=== PATIENT | female | born 1965 | race Caucasian/White ===

== ENCOUNTER 2020-05-29 16:35 | Outpatient (CLI) | payer OTHER, SELFPAY ==
--- NOTE | ~2020-05-29 | MM_ITS ---
EXAMINATION: MM screening [facility] BI w jason HISTORY: Screening mammogram TECHNIQUE: Craniocaudal and mediolateral oblique 3-D tomosynthesis images were obtained and synthetic 2-D images were generated. CAD analysis was submitted and interpreted. COMPARISON: 10/26/2018, 06/13/2017 bilateral digital screening mammogram examinations BREAST PARENCHYMAL COMPOSITION: There are scattered areas of fibroglandular density. FINDINGS: Small circumscribed benign intramammary lymph nodes are identified, as well as occasional b enign calcifications. There is no evidence of suspicious mass, calcification, or architectural distor tion to suggest malignancy in either breast. There has been no suspicious interval change. IMPRESSION: 1. No mammographic evidence of malignancy. 2. Recommend routine screening mammography in one year. BI-RADS Category 2: Benign finding(s). Reviewed, dictated and finalized at location A.
== END 2020-05-29 16:36 | disposition home or self-care (01) ==
LOC: ANHIMG 16:39
PROVIDERS: PCP Physician Assistant; Visit Provider Physician Assistant
DX: Z12.31 Encounter for screening mammogram for malignant neoplasm of breast (principal)
CPT/HCPCS: 77063; 77067

== ENCOUNTER 2021-12-05 08:45 | Outpatient (CLI) | payer OTHER, SELFPAY ==
--- NOTE | ~2021-12-05 | MM_ITS ---
EXAMINATION: MM screening [facility] BI w jason HISTORY: Screening mammogram TECHNIQUE: Craniocaudal and mediolateral oblique 3-D tomosynthesis images were obtained and synthetic 2-D images were generated. CAD analysis was submitted and interpreted. COMPARISON: 05/29/2020, 10/26/2018, 06/13/2017 BREAST PARENCHYMAL COMPOSITION: There are scattered areas of fibroglandular density. FINDINGS: There is no evidence of suspicious mass, calcification, or architectural distortion to sugg est malignancy in either breast. There has been no suspicious interval change. IMPRESSION: 1. No mammographic evidence of malignancy. 2. Recommend routine screening mammography in one year. BI-RADS Category 1: Negative Reviewed, dictated and finalized at location A. LY CHAIN TECH
== END 2021-12-05 08:46 | disposition home or self-care (01) ==
PROVIDERS: PCP Physician Assistant; Visit Provider Obstetrics & Gynecology
DX: Z12.31 Encounter for screening mammogram for malignant neoplasm of breast (principal)
CPT/HCPCS: 77063; 77067

== ENCOUNTER 2022-03-12 08:38 | Outpatient (CLI) | payer OTHER, SELFPAY ==
--- NOTE | ~2022-03-12 | MR_ITS ---
EXAMINATION: MR lumbar spine wo con DATE: 03/12/2022 09:25 INDICATION: Degeneration of lumbar intervertebral disc. TECHNIQUE: Magnetic resonance imaging (MRI) of the lumbar spine was performed without intravenous con trast. Sequences included sagittal T2-weighted FSE, sagittal T2-weighted FS FSE, sagittal T1-weighted FSE, and axial T2-weighted FSE. COMPARISON: None FINDINGS: There is 8 degrees levocurvature of thoracic lumbar spine. Vertebral body heights are adriana l. There is mildly decreased disc height at L4-L5. The distal spinal cord signal intensity is normal. The conus medullaris is at L2. The following disc levels are specifically discussed: L1-L2: The disc does not extend beyond the endplate margin. There is mild bilateral facet joint osteo arthritis. There is no neural foraminal stenosis. There is no central canal stenosis. L2-L3: The disc does not extend beyond the endplate margin. There is moderate bilateral facet joint o steoarthritis. There is no neural foraminal stenosis. There is no central canal stenosis. L3-L4: There is a left foraminal protrusion. There is moderate bilateral facet joint osteoarthritis. There is mild left neural foraminal stenosis. There is no central canal stenosis. L4-L5: The disc is bulging and has an annular fissure. There is severe bilateral facet joint osteoart hritis. There is mild bilateral neural foraminal stenosis. There is mild central canal stenosis. L5-S1: The disc is bulging and has an annular fissure. There is severe bilateral facet joint osteoart hritis. There is mild bilateral neural foraminal stenosis. There is mild central canal stenosis. IMPRESSION: 1. Mild lumbar spondylosis. Reviewed, dictated and finalized at location A. IMPRESSION: 1. Mild lumbar spondylosis.
== END 2022-03-12 08:39 | disposition home or self-care (01) ==
PROVIDERS: PCP Physician Assistant; Visit Provider Physician Assistant
DX: M51.36 Other intervertebral disc degeneration, lumbar region (principal); M47.896 Other spondylosis, lumbar region
CPT/HCPCS: 72148

== ENCOUNTER 2022-05-26 09:08 | Outpatient (CLI) | payer OTHER, SELFPAY ==
--- NOTE | 2022-05-26 11:30 | NEURO_ITS ---
Impression: # Complains of severe leg pain. # Normal nerve conduction study. # Normal needle/EMG exam. Nerve Conduction Studies Anti Sensory Summary Table Stim Site NR Peak (ms) P-T Amp (?V) Site1 Site2 Delta-P (ms) Dist (cm) Nitesh (m/s) Left Sup Fibular Anti Sensory (Ant Lat Mall) 14 cm 3.1 18.4 14 cm Ant Lat Mall 3.1 16.0 52 Right Sup Fibular Anti Sensory (Ant Lat Mall) 14 cm 3.2 24.9 14 cm Ant Lat Mall 3.2 16.0 50 Left Sural Anti Sensory (Lat Mall) Calf 3.9 13.5 Calf Lat Mall 3.9 16.0 41 Right Sural Anti Sensory (Lat Mall) Calf 4.0 16.5 Calf Lat Mall 4.0 16.0 40 Motor Summary Table Stim Site NR Onset (ms) O-P Amp (mV) Site1 Site2 Delta-0 (ms) Dist (cm) Nitesh (m/s) Left Peroneal Motor (Vastus Med) Ankle 4.1 2.9 Popit Ankle 7.2 38.0 53 Popit 11.3 2.2 Right Peroneal Motor (Vastus Med) Ankle 3.8 3.6 Popit Ankle 7.6 36.0 47 Popit 11.4 2.9 Left Tibial Motor (Abd Roland Brev) Ankle 4.3 6.4 Knee Ankle 8.3 38.0 46 Knee 12.6 4.9 Right Tibial Motor (Abd Roland Brev) Ankle 4.1 7.2 Knee Ankle 8.5 39.0 46 Knee 12.6 8.6 F Wave Studies NR F-Lat (ms) L-R F-Lat (ms) Left Peroneal (Mrkrs) (EDB) 46.25 1.10 Right Peroneal (Mrkrs) (EDB) 45.16 1.10 Left Tibial (Mrkrs) (Abd Hallucis) 44.82 0.28 Right Tibial (Mrkrs) (Abd Hallucis) 44.54 0.28 EMG Side Muscle Nerve Root Ins Act Fibs Amp Dur Recrt Comment Right AntTibialis Dp Br Fibular L4-5 Nml Nml Nml Nml Nml Right Gastroc Tibial S1-2 Nml Nml Nml Nml Nml Right Fibularis Long Sup Br Fibular L5-S1 Nml Nml Nml Nml Nml Right Flex Dig Long Tibial L5-S2 Nml Nml Nml Nml Nml Right Ext Dig Brev Dp Br Fibular L5, S1 Nml Nml Nml Nml Nml Left AntTibialis Dp Br Fibular L4-5 Nml Nml Nml Nml Nml Left Gastroc Tibial S1-2 Nml Nml Nml Nml Nml Left Fibularis Long Sup Br Fibular L5-S1 Nml Nml Nml Nml Nml Left Flex Dig Long Tibial L5-S2 Nml Nml Nml Nml Nml Left Ext Dig Brev Dp Br Fibular L5, S1 Nml Nml Nml Nml Nml Right QuadratusFem QuadFemoris L4-5, S1 Nml Nml Nml Nml Nml Left QuadratusFem QuadFemoris L4-5, S1 Nml Nml Nml Nml Nml Right ExtHallLong Dp Br Fibular L5, S1 Nml Nml Nml Nml Nml Right Ext Dig Long Dp Br Fibular L5-S1 Nml Nml Nml Nml Nml Left ExtHallLong Dp Br Fibular L5, S1 Nml Nml Nml Nml Nml Left Ext Dig Long Dp Br Fibular L5-S1 Nml Nml Nml Nml Nml MTDD
== END 2022-05-26 09:09 | disposition home or self-care (01) ==
PROVIDERS: PCP Physician Assistant; Visit Provider Nurse Practitioner Family
DX: R20.2 Paresthesia of skin (principal); M79.662 Pain in left lower leg; M79.661 Pain in right lower leg
CPT/HCPCS: 95886; 95910

== ENCOUNTER → 2025-10-07 16:36 | Outpatient (REF) | payer OTHER, SELFPAY ==
--- NOTE | 2025-10-07 16:36 | S_PTH ---
PATIENT: Hayley Ferreira LOC: [facility] U#:[id number] AGE/SX: 60/F ROOM: RE10/07/[address]: Sarah Martin MD : 1965 BED: DIS: SPEC #: [id number] RECD: 10/08/25 07:33 STATUS: COLTON ZENDEJAS #: [id number] ANDRES: 10/07/25 16:[address]: Sarah Martin DEPT: [facility] Surgical RECD BY: Latoya Funes ENTERED: 10/08/25 07:33 SP TYPE: Surgical OTHR DR: Alfreda Fox, PADanielC Tissues: A - LESION Procedures: Gross and Microscopic Level 4
--- OUTSIDE RECORDS SUMMARY | 2025-10-07 18:29 | XMS_ITS | Clinical Summary ---
Author Organization [facility] Address [address] [place] [address] Care Team Providers Care Historical Records Administrator Name Role Phone Almas Olson MD Primary Care Provider [phone] Source Comments [facility],non-owned Affiliates and Associated Physician Practices is amultiple site organization consisting of ambulatory clinics and hospital sitesin [place], [place], [place] and [place]. This disclosure is being madepursuant to the Care Everywhere program and may not contain all information available regarding this patient. Last updated 18.[facility] Allergies Active Allergy Reactions Criticality Noted Date Comments Penicillins Swelling 04/30/2015 Medications * Be aware that medications may not be up to date on this document. Alwaysverify current medications with the patient. dexlansoprazole (DEXILANT) 60 MG capsule Take 60 mg by mouth once daily Active pentosan polysulfate sodium (ELMIRON) 100 MG capsule Take 100 mg by mouth 3 times daily before meals Active lisinopril (PRINIVIL; ZESTRIL) 10 MG tablet Take 10 mg by mouth once daily Active atorvastatin (LIPITOR) 20 MG tablet Take 20 mg by mouth at bedtime Active busPIRone (BUSPAR) 15 MG tablet Take 15 mg by mouth 2 times daily Active lubiprostone (AMITIZA) 24 MCG capsule Take 24 mcg by mouth 2 times daily with morning and evening meal Active hydrOXYzine pamoate (VISTARIL) 25 MG capsule Take 25 mg by mouth at bedtime Active cyclobenzaprine (FLEXERIL) 10 MG tablet Take 10 mg by mouth at bedtime Active amitriptyline (ELAVIL) 25 MG tablet Take 37.5 mg by mouth at bedtime Active LORazepam (ATIVAN) 1 MG tablet Take 1 mg by mouth every 8 hours as needed for Anxiety Active norethindrone (AYGESTIN) 5 MG tablet Take 5 mg by mouth once daily Active SUMAtriptan (IMITREX) 100 MG tablet Take 100 mg by mouth once as needed for Migraine Active Isometheptene-Ca ffeine-APAP 130-20-500 MG TABS Take by mouth every 12 hours as needed Active Family History Medical History Relation Name Comments CAD (Coronary Artery Disease) Father Relation Name Status Comments Father Social History Tobacco Use Types Packs/Day Years Used Date Smoking Tobacco: Never Smokeless Tobacco: Never Alcohol Use Standard Drinks/Week Comments No 0 (1 standard drink = 0.6 oz pur e alcohol) Comments Unknown Sex and Gender Information Value Date Recorded Sex Assigned at Not on file 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 Gender Identity Not on file Sexual Orientation Not on file Last Filed Vital Signs Vital Sign Reading Time Taken Comments Blood Pressure - - Pulse - - Temperature - - Respiratory Rate - - Oxygen Saturation - - Inhaled Oxygen Concentration - - Weight 86.2 kg (190 lb) 04/30/2015 6:07 AM CDT Height 162.6 cm (5' 4) 04/30/2015 6:07 AM CDT Body Mass Index 32.61 04/30/2015 6:07 AM CDT Plan of Treatment Health Maintenance Due Date Last Done Comments COLOGUARD (AGES 45-75) - COL ON CA SCREENING 1965 COLON MONITORING 1965 COLONOSCOPY - COLON CA SCREENING 1965 CT COLONOGRAPHY - COLON CA SCREENING 1965 Colorectal Cancer Screening 1965 FIT - COLON CA SCREENING 1965 FLEX SIG - COLON CA SCREENING 1965 MAMMOGRAM 1965 HIV SCREENING 1979 HEPATITIS C SCREENING 04/02/1982 DTAP/TDAP/TD VACCINES (1 - Tdap) 1983 PAP SMEAR 1985 Cervical Cancer Screening 1994 PAP with HPV 1994 PNEUMOCOCCAL VACCINE 50+ (1 of 1 - PCV) 2014 ZOSTER VACCINE (1 of 2) 2014 DEPRESSION SCREENING 11/14/2024 COVID-19 VACCINE (1 - 2024-2 6 season) 2025 INFLUENZA VACCINE (#1) 2025 Respiratory Syncytial Virus (RSV) Vaccine Pt: or over 60 yrs (1 - 1-dose 75+ series) 2039 HEPATITIS B VACCINE Aged Out No longe r eligible based on patient's age to complete this topic HIB VACCINE Aged Out No longer eligi ble based on patient's age to complete this topic HPV VACCINE Aged Out No longer eligi ble based on patient's age to complete this topic MENINGOCOCCAL (Group B) VACC INE SHARED DECISION-MAKING Aged Out No longer eligibl e based on patient's age to complete this topic MENINGOCOCCAL GROUPS A/C/Y/W VACCINE Aged Out No longer eligible b ased on patient's age to complete this topic Insurance [employer] Care Teams Historical Records Administrator Relationship Specialty Start Date End Date Almas Olson MD [address] [place] [id number] PCP - General 06/06/18
== END ==
LOC: ANHLAB 16:36
PROVIDERS: PCP Physician Assistant; Visit Provider Plastic Surgery
DX: C44.91 Basal cell carcinoma of skin, unspecified (principal)
CPT/HCPCS: 88305

== ENCOUNTER → 2025-10-22 15:30 | Outpatient (REF) | payer OTHER, SELFPAY ==
--- NOTE | 2025-10-22 15:30 | S_PTH ---
PATIENT: Hayley Ferreira LOC: [facility] #:[id number] AGE/SX: 60/F ROOM: RE10/22/[address]: Sarah Martin MD : 1965 BED: DIS: SPEC #: [id number] RECD: 10/23/25 08:49 STATUS: COLTON ZENDEJAS #: [id number] ANDRES: 10/22/25 15:[address]: Sarah Martin DEPT: [facility] Surgical RECD BY: Marietta Enriquez MLT, ([facility]) ENTERED: 10/23/25 08:50 SP TYPE: Surgical OTHR DR: Alfreda Fox, PADanielC Tissues: A - Biopsy B - Biopsy Procedures: Hematoxylin and Eosin Stain Gross and Microscopic Level 4
--- OUTSIDE RECORDS SUMMARY | 2025-10-22 17:56 | XMS_ITS | Clinical Summary ---
Author Organization [facility] Address [address] [place] [place] [address] Care Team Providers Care Box Car Checker Name Role Phone Almas Olson MD Primary Care Provider [phone] Source Comments [facility],non-owned Affiliates and Associated Physician Practices is amultiple site organization consisting of ambulatory clinics and hospital sitesin [place], [place], [place] and [place]. This disclosure is being madepursuant to the Care Everywhere program and may not contain all information available regarding this patient. 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 Gender Identity Not on file Sexual Orientation [...] patient's age to complete this topic Insurance [employer] [facility] SELF PAY NO INSURANCE Member Subscriber Plan / Payer (Ef fective for All Dates) Name:Ike Raphael Member ID:Not on file Relation to Subscriber:Not on file Name:IKE RAPHAEL Subscriber ID:Not on file (Home) Address: [address] [place] [id number] Payer ID:Not on file Group ID:Not on file Type:Self Pay Address: [place], [place] [employer] Care Teams Box Car Checker Relationship Specialty Start Date End Date Almas Olson MD [address] [place] [address] PCP - General 06/06/18
--- OUTSIDE RECORDS SUMMARY | 2025-10-22 17:57 | XMS_ITS | Data Portability ---
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 Supervisor Hydrochloric Area variances may occur. Despite proofreading, typographical errors may occur. Occasional wrong-word or 'hpokn-r-wrka' substitutions may have occurred due to the inherent limitations of voice recording. Read the chart carefully and recognize, using context, where substitutions have occurred. Not available 04/02/2024 17:46:20 04/17/2024 04/17/2024 This note is dictated and transcribed by [employer]. Supervisor Hydrochloric Area variances may occur. Despite proofreading, typographical errors may occur. Occasional wrong-word or 'yyevv-z-txyp' substitutions may have occurred due to the inherent limitations of voice recording. Read the chart carefully and recognize, using context, where substitutions have occurred. Not available 04/17/2024 16:22:08 06/05/2024 06/05/2024 This note is dictated and transcribed by [employer]. Supervisor Hydrochloric Area variances may occur. Despite proofreading, typographical errors may occur. Occasional wrong-word or 'nkmzh-e-cqvq' substitutions may have occurred due to the inherent limitations of voice recording. Read the chart carefully and recognize, using context, where substitutions have occurred. Not available 06/07/2024 09:15:56 11/29/2024 11/29/2024 This note is dictated and transcribed by [employer]. Supervisor Hydrochloric Area variances may occur. Despite proofreading, typographical errors may occur. Occasional wrong-word or 'jvjaz-z-qmed' substitutions may have occurred due to the inherent limitations of voice recording. Read the chart carefully and recognize, using context, where substitutions have occurred. Not available 01/10/2025 09:13:26 01/23/2025 01/23/2025 This note is dictated and transcribed by [employer]. Supervisor Hydrochloric Area variances may occur. Despite proofreading, typographical errors may occur. Occasional wrong-word or 'uojza-t-rcon' substitutions may have occurred due to the inherent limitations of voice recording. Read the chart carefully and recognize, using context, where substitutions have occurred. Not available 01/24/2025 10:08:16 Plan of Treatment Reminders Order Date Submit Date Provider Last Modified By Organization Details Last Modified Time Details Appointments None record ed. Lab None record ed. Referral None record ed. Procedures None record ed. Surgeries None record ed. Imaging XR, foot, 3 or more view 024 06/05/20 24 [email or web address] [facility] [place] [facility] [address], [address], 4 15:46:31 XR, foot, 3 or more view 024 04/17/[address] ([facility]), [address] [place], [address], 4 09:27:19 XR, foot, 3 or more view 024 04/17/20 24 [email or web address] [facility] [place], [address] [facility] [address], [place], [address], 4 16:24:33 XR, foot, 3 or more view 024 04/04/[address] ([facility]), [address] [facility], [place], [address], 4 08:25:49 Medication Orders None record ed. Patient TargetsNo targets recorded. Patient Instructions Encounter Date Encounter Id Patient Instructions Last Modified By Organization Details Last Modified Time 11/29/2024 [id number] preoperative clearance* Not available 01/10/2025 09:30:27 Reason for Referral None Reported. Results Created Date Observation Date Name Description Value Unit Range Abnormal Flag Note LastModifiedBy Organization Detail LastModifiedTime 04/17/20 24 XR, foot, 3 or more view No observ ation record ed. [email or web address] [facility] [place] [address] [facility] [address], [place], [address], 04/17/2024 16:24:33 06/05/20 24 XR, foot, 3 or more view No observ ation record ed. [email or web address] [facility] [place] [address] [facility] [address], [place], [address], 06/05/2024 15:46:31 Result Notes None recorded. Problems Name Problem SNOMED Code Status Onset Date Resolution Date Notes Provider Name and Address Organization Details Recorded Time Disorder of shoulder 074029760 Active Not Available [facility] 3 03:07:30 Benign essential hypertensi on 7449288 Active Not Available [facility] 3 03:07:30 Acute sinusitis 70101937 Active Not Available [facility] 3 03:07:30 Blood glucose outside reference range 700793920 Active Not Available [facility] 3 03:07:30 Recurrent anxiety 632814978 Active Not Available [facility] 3 03:07:30 Chronic interstiti al cystitis 650186028 Active Not Available [facility] 3 03:07:30 Lateral epicondyli tis 129832612 Active Not Available [facility] 3 03:07:30 Fibromyosi tis 88157347 Active Not Available [facility] 3 03:07:31 Headache 52764362 Active Not Available [facility] 3 03:07:31 Lower urinary tract symptoms 041777123 Active Not Available [facility] 3 03:07:31 Hiatal hernia with gastroesop hageal reflux 311972660 Active Not Available [facility] 3 03:07:31 Migraine 47903517 Active Not Available [facility] 3 03:07:31 Osteoarthr itis 978872432 Active Not Available [facility] 3 03:07:31 Aphthous ulcer of mouth 391894583 Active Not Available [facility] 3 03:07:31 Irritable bowel syndrome characteri zed by constipati on 177484158 Active Not Available [facility] 3 03:07:31 Patellofem oral osteoarthr itis 490066655 Active Not Available [facility] 3 03:07:32 Anxiety 09466287 Active Not Available [facility] 3 03:07:32 Candidiasi s of skin 92712059 Active Not Available [facility] 3 03:07:32 Hyperlipid emia 84068831 Active Not Available [facility] 3 03:07:32 Disorder of bursa of shoulder region 50623580 Active Not Available [facility] 3 03:07:32 Allergic rhinitis 28803597 Active Not Available [facility] 3 03:07:32 Increased liver function 46939829 Active Not Available [facility] 3 03:07:32 Degenerati on of cervical interverte bral disc 50635876 Active Not Available [facility] 3 03:07:32 Iron deficiency anemia 35859007 Active Not Available [facility] 3 03:07:32 Pain in bilateral legs 1433668362093 9108 Active 2021 Not Available [facility] 3 03:07:30 Fibromyalg ia 001048738 Active 2021 Not Available [facility] 3 03:07:30 Gastro-eso phageal reflux disease with esophagiti s 241177160 Active 2021 Not Available [facility] 3 03:07:31 Long-term drug therapy Active 2021 Not Available [facility] 3 03:07:31 Acute maxillary sinusitis 11683541 Active 2021 Not Available [facility] 3 03:07:32 Degenerati on of lumbar interverte bral disc 26381354 Active 2021 Not Available [facility] 3 03:07:31 Lumbar spondylosi s 170147021 Active 2021 Not Available [facility] 3 03:07:30 Acute urinary tract infection 091963953 Active 2021 Not Available [facility] 3 03:07:31 Superficia l gingival ulcer 21526008 Active 2022 COL[address] Woo [address], [address], [place], [address] , [employer] 3 13:52:06 Pain of multiple joints 59979886 Active 2022 COLBY Woo [address], [address], [place], [address] , [facility] 3 16:13:08 Acquired deformity of toe of left foot 4182354958607 04 Active 2022 COLBY Woo [address], [place], [address] , [facility] 3 16:16:16 Dermatosis of scalp 223665580 Active 2022 COLBY Woo [address], [address], [place], [address] , [employer] 3 16:16:44 Pain of bilateral hip joints 5919084748673 9100 Active 2022 COLBY Woo [address], [address], [place], [address] , [employer] 3 16:17:43 Bunion 397513564 Active 2022 Zoran Murry DPM [address], [place], [address] , [facility] 3 09:55:07 Pain in bilateral feet 2800115122300 9102 Active 2022 Zoran Murry DPM [address], [place], [address] , [place] [facility] 3 09:56:06 Hammer toe 232334915 Active 2022 Zoran Murry DPM [address], [place], [address] , [place] [facility] 3 09:56:12 Bunion 211438058 Active 2022 Zoran Murry DPM [address], [place], [address] , [place] [facility] 3 09:56:27 Arthritis 8613741 Active 2022 Leena benjamin, [place] [facility] 3 10:19:49 History of malignant neoplasm of cervix 204444652 Active 2022 Leena benjamin, [place] [facility] 3 10:20:17 History of malignant neoplasm of thyroid 406072521 Active 2022 Leena benjamin, [place] [facility] 3 10:20:33 Heartburn 55725052 Active 2022 Leena benjamin, [place] [facility] 3 10:20:54 Hammer toe 718199761 Active 2022 Zoran Murry DPM [address], [place], [address] , [facility] 3 09:22:03 Right metatarsus adductus 9730815085825 9106 Active 2022 Zoran Murry DPM [address], [place], [address] , [place] [facility] 3 09:22:09 Acute upper respirator y infection 11261213 Active 2023 COLBY Woo [address], [place], [address] , [place] [facility] 4 15:20:43 Postoperat liborio visit 254535123 Active 2023 Zoran Murry DPM [address], [place], [address] , [place] [facility] 4 09:57:03 Cellulitis of left foot 5848480558792 9101 Active 2023 Zoran Murry DPM [address], [place], [address] , [place] [facility] 4 14:15:00 Pain of toe of right foot 8646376228053 01 Active 2024 Zoran Murry DPM [address], [place], [address] , [employer] [facility] 5 09:13:30 Notes:BACK/NECK PROBLEMSURIN NATHAN/BLADDER/KIDNEY PROBLEMS Problem Notes None recorded. Procedures Surgical History Date Name Laterality Status Provider Name and Address Organization Details Recorded Time 017 Most Recent Bone Density completed Not Available [facility] 01/12/2023 03:00:16 015 Date of Last Colonoscopy completed Not Available [facility] 01/12/2023 03:00:16 012 Carpal tunnel surgery completed Not Available [facility] 01/12/2023 03:00:19 008 parathyroidectomy completed Not Available [facility] 01/12/2023 03:00:19 008 Cholecystectomy completed Not Available [facility] 01/12/2023 03:00:19 000 laparoscopy completed Not Available [facility] 01/12/2023 03:00:19 989 section completed Not Available [facility] 01/12/2023 03:00:19 thyroidectomy completed Not Available [facility] 01/12/2023 03:00:19 other completed Not Available [facility] 01/12/2023 03:00:19 EGD completed Not Available [facility] 01/12/2023 03:00:19 colonoscopy completed Not Available [facility] 01/12/2023 03:00:19 Imaging Results None recorded. Procedure Notes None recorded. Medical Equipment None Reported. Allergies Allergen ID Allergen Name Allergen Category Reaction Reaction Severity Criticality Documentation Date Start Date Code Code System Note Provider Name and Address Organization Details Recorded Time 5692 Product containin g penicilli n (product) medicatio n other Not available Not available 01/12/2023 13619 8001 SNOMED eyes swoll en at child craft Not Available [facility] 3 03:16:38 5693 penicilli n V Not available Not available Not available Not available 01/12/2023 7984 RxNorm Other react ions and sever ities : 'Adve rse react ion to subst ance' . Not Available [facility] 3 03:16:38 12695 adhesive tape environme nt,medica tion Not available Not available Not available 09/29/2023 Leena benjamin, [place] [facility] 3 10:18:24 Medications Name Sig Start Date Stop Date Status Note LastModified by Organization Details LastModified Time cyclobenz aprine 10 mg tablet TAKE 1 TABLET BY MOUTH THREE TIMES A DAY NEEDED active Not Available Not Available No t Available nystatin 100,000 unit/mL oral suspensio n 5ml swish and swallow qid active Not Available Not Available No t Available doxycycli ne hyclate 100 mg capsule TAKE 1 CAPSULE BY MOUTH TWICE A DAY WITH FOOD 03/06 completed Not Available Not Available Not Available atorvasta tin 20 mg tablet TAKE 1 TABLET BY MOUTH EVERY DAY active Not Available Not Available No t Available clindamyc in HCl 300 mg capsule TAKE 1 CAPSULE BY MOUTH EVERY 6 HOURS active Not Available Not Available No t Available azithromy deny 250 mg tablet TAKE 2 TABLETS BY MOUTH TODAY, THEN TAKE 1 TABLET DAILY FOR 4 DAYS DIRECTED 03/06 completed Not Available Not Available Not Available benzonata te 200 mg capsule Take 1 capsule 3 times a day by oral route. 09/20 completed Not Available Not Available Not Available clarithro mycin 500 mg tablet Take 1 tablet twice a day by oral route with meals. active Not Available Not Available No t Available hydrocodo ne 5 mg-acetam inophen 325 mg tablet Take 1 tablet twice a day by oral route. 2014 active Not Available Not Available Not Avai lable Levaquin 750 mg tablet Take 1 tablet every day by oral route for 5 days. 06/09 completed Not Available Not Available Not Available propranol ol ER 60 mg capsule,2 4 hr,extend ed release TAKE 1 CAPSULE BY MOUTH EVERY DAY active Not Available Not Available No t Available Elmiron 100 mg capsule TAKE 1 CAPSULE BY MOUTH THREE TIMES A DAY active Not Available Not Available No t Available Maxalt 10 mg tablet take one tablet po at onset of migraine , may repeat after an hour if needed. max of 2 tablets in 24 hours. 09/28 completed Not Available Not Available Not Available clindamyc in HCl 150 mg capsule TAKE 1 CAPSULE BY MOUTH FOUR TIMES A DAY active Not Available Not Available No t Available Diflucan 150 mg tablet Take 1 tablet every day by oral route as directed for 1 day. 12/30 completed Not Available Not Available Not Available Aygestin 5 mg tablet Take 1 tablet every day by oral route. 07/24 completed Not Available Not Available Not Available tramadol 50 mg tablet TAKE 1 TABLET BY MOUTH THREE TIMES A DAY NEEDED FOR PAIN MUST LAST 30 DAYS active Not Available Not Available No t Available amitripty line 50 mg tablet TAKE 1 TABLET BY MOUTH EVERY DAY IN THE EVENING active Not Available Not Available No t Available Macrobid 100 mg capsule Take 1 capsule every 12 hours by oral route. 07/29 completed Not Available Not Available Not Available Celebrex 200 mg capsule Take 1 capsule every day by oral route with meals. active pt stopped Not Available Not Available Not Available oxycodone -acetamin ophen 5 mg-325 mg tablet 1 TABLET BY MOUTH EVERY 6 HOURS NEEDED FOR PAIN - MODERATE (4-6 ON SCALE) 04/02 completed Not Available Not Available Not Available Celebrex 100 mg capsule Take 1 capsule every day by oral route as needed. 03/11 completed interact ion w/elmiro n Not Available Not Available Not Available amitripty line 25 mg tablet Take 1.5 tablets every day by oral route. active Not Available Not Available No t Available triamcino lone acetonide 0.1 % dental paste APPLY TO THE GUM ULCER UP TO 5 TIMES DAILY 08/25 completed Not Available Not Available Not Available pantopraz ole 40 mg tablet,de layed release TAKE 1 TABLET BY MOUTH EVERY DAY active Not Available Not Available No t Available Cipro 500 mg tablet Take 1 tablet every 12 hours by oral route. 10/11 completed Not Available Not Available Not Available lisinopri l 10 mg tablet Take 1 tablet every day by oral route. active hold off on taking at this time. Not Available Not Available Not Available propranol ol ER 80 mg capsule,2 4 hr,extend ed release Take 1 capsule every day by oral route. active d/c 60mg dose. Not Available Not Available Not Available nystatin- triamcino lone 100,000 unit/g-0. 1 % topical cream 07/24 completed PRN Not Available Not Available Not Available gabapenti n 300 mg capsule TAKE 1 CAPSULE BY MOUTH THREE TIMES A DAY active Not Available Not Available No t Available monteluka st 10 mg tablet TAKE 1 TABLET BY MOUTH EVERY DAY active Not Available Not Available No t Available hydroxyzi ne HCl 25 mg tablet TAKE 1 TABLET BY MOUTH EVERYDAY AT BEDTIME active Not Available Not Available No t Available Levaquin 500 mg tablet Take 1 tablet every 24 hours by oral route. active Not Available Not Available No t Available Imitrex 100 mg tablet TAKE 1 TABLET (100 MG) BY ORAL ROUTE AFTER ONSET OF MIGRAINE ; MAY REPEAT AFTER 2 HOURS IF HEADACHE RETURNS, NOT TO EXCEED 200MG IN 24HRS active Not Available Not Available No t Available nystatin 100,000 unit/gram topical powder APPLY TO THE AFFECTED AREA(S) under breast BY TOPICAL ROUTE 2 TIMES PER DAY 04/17 completed Not Available Not Available Not Available lorazepam 1 mg tablet TAKE 1 TABLET BY MOUTH TWICE A DAY NEEDED active Not Available Not Available No t Available Cheratuss in AC 10 mg-100 mg/5 mL oral liquid Take 10 mL every 4-6 hours by oral route as needed. 10/31 completed Not Available Not Available Not Available Tylenol-C odeine #3 300 mg-30 mg tablet Take 1 tablet every 8 hours by oral route as needed. active Not Available Not Available No t Available Pepcid 20 mg tablet Take 2 tablets every day by oral route at bedtime. 08/13 completed Not Available Not Available Not Available cefuroxim e axetil 500 mg tablet Take 1 tablet every 12 hours by oral route. 06/30 completed Not Available Not Available Not Available ondansetr on 4 mg disintegr ating tablet Take 1 tablet every 6 hours by oral route as needed. 09/28 completed Not Available Not Available Not Available cefdinir 300 mg capsule Take 1 capsule every 12 hours by oral route. 12/30 completed Not Available Not Available Not Available fluticaso ne propionat e 50 mcg/actua tion nasal spray,luciana pension SPRAY 2 SPRAYS INTO EACH NOSTRIL ONCE DAILY DIRECTED active Not Available Not Available No t Available buspirone 15 mg tablet TAKE 1 TABLET BY MOUTH TWICE A DAY active Not Available Not Available No t Available clobetaso l 0.05 % shampoo APPLY A THIN LAYER BY TOPICAL ROUTE ONCE DAILY TO DRY SCALP LEAVE IN PLACE 15 MIN. THEN LATHER AND RINSE. PRN use 08/25 completed Not Available Not Available Not Available duloxetin e 30 mg capsule,d elayed release TAKE 1 CAPSULE BY MOUTH EVERY DAY active Not Available Not Available No t Available duloxetin e 60 mg capsule,d elayed release TAKE 1 CAPSULE BY MOUTH EVERY DAY active Not Available Not Available No t Available ferrous gluconate 324 mg (36 mg iron) tablet Take 1 tablet every day by oral route as directed . active Not Available Not Available No t Available Amitiza 24 mcg capsule TAKE 1 CAPSULE BY MOUTH TWICE DAILY 12/27 completed Not Available Not Available Not Available ferrous gluconate 324 mg (38 mg iron) tablet TAKE 1 TABLET BY MOUTH EVERY DAY active Not Available Not Available No t Available Dexilant 60 mg capsule, delayed release Take 1 capsule every day by oral route for 56 days. 05/06 completed Not Available Not Available Not Available Orabase (benzocai ne) 20 % mucosal paste apply Kenalog in Orabase mixture to mouth areas every 4 hours PRN 09/20 completed Not Available Not Available Not Available Linzess 145 mcg capsule TAKE 1 CAPSULE BY MOUTH EVERY DAY active Not Available Not Available No t Available Prodrin 65 mg-20 mg-325 mg tablet take one tablet po at onset of migraine , may repeat q 2 hours. max of 5 tablet in 24 hours. 09/20 completed Not Available Not Available Not Available Lotemax SM 0.38 % eye gel drops INSTILL 1 DROP INTO BOTH EYES 3 TIMES A DAY DIRECTED 08/13 completed Not Available Not Available Not Available Vitals Date Recorded Body height Body mass index (BMI) Body weight Heart rate Respiratory rate Oxygen saturation Systolic And Diastolic Provider Name and Address Organization Details Last Updated DateTime 5 162.56 cm 34.3 kg/m2 41625.4 7 g 70 /min 14 /min 98 % 148/72 mm[Hg] Shanonn Carvajal [employer] 5 16:45:03 Date Recorded Body height Body mass index (BMI) Body weight Heart rate Respiratory rate Oxygen saturation Systolic And Diastolic Provider Name and Address Organization Details Last Updated DateTime 5 162.56 cm 34.3 kg/m2 52975.4 7 g 81 /min 14 /min 99 % 142/74 mm[Hg] Shannon Carvajal [employer] 5 17:10:15 Date Recorded Body height Body mass index (BMI) Body weight Heart rate Respiratory rate Body temperature Oxygen saturation Systolic And Diastolic Provider Name and Address Organization Details Last Updated DateTime 4 162.56 cm 34.3 kg/m2 23915.4 7 g 100 /min 16 /min 97.7 [degF] 98 % 130/80 mm[Hg] Angelica Dalton [employer] 4 17:23:49 Date Recorded Body height Heart rate Systolic And Diastolic Provider Name and Address Organization Details Last Updated DateTime 04/17/2024 162.56 cm 80 /min 150/84 mm[Hg] Leena Oneal [employer] 04/17/2024 15:50:45 Date Recorded Body height Body mass index (BMI) Body weight Heart rate Systolic And Diastolic Provider Name and Address Organization Details Last Updated DateTime 06/05/2024 162.56 cm 34.3 kg/m2 17836.47 g 80 /min 149/86 mm[Hg] BINA Jensen [facility] 06/05/2024 15:35:35 Social History Question Answer Notes LastModified by Organizat ion Details LastModified Time Tobacco Smoking Status Never Smoker Not Available [facility] 01/12/2023 02:48:21 Do You Have An Advance Directive? No [id number] Information not available 01/12/2023 What Is Your Level Of Caffeine Consumption? Heavy [id number] Information not available 01/12/2023 How Much Tobacco Do You Chew? None [id number] Information not available 01/12/2023 In The 14 Days Before Symptom Onset, Have You Had Close Contact With A Laboratory-confirm ed COVID-19 While That Case Was Ill? No [id number] Information not available 01/12/2023 In The 14 Days Before Symptom Onset, Have You Had Close Contact With A Person Who Is Under Investigation For COVID-19 While That Person Was Ill? No [id number] Information not available 01/12/2023 What Type Of Diet Are You Following? REGULAR [id number] Information not available 01/12/2023 Which Illicit Or Recreational Drugs Have You Used? None [id number] Information not available 01/12/2023 Have There Been Any Changes To Your Family Or Social Situation? No [id number] Information not available 01/12/2023 Are There Any Guns Present In Your Home? Yes [id number] Information not available 01/12/2023 Do You Use Insect Repellent Routinely? No [id number] Information not available 01/12/2023 Do You Have A Medical Power Of Nutrition Teacher? No [id number] Information not available 01/12/2023 What Is Your Relationship Status? [id number] Information not available 01/12/2023 Do You Use Your Seat Belt Or Car Seat Routinely? Yes [id number] Information not available 01/12/2023 Do You Have Smoke And Carbon Monoxide Detectors In Your Home? Yes [id number] Information not available 01/12/2023 At What Age Did You Start Smoking Tobacco? 1 [id number] Information not available 01/12/2023 How Much Tobacco Do You Smoke? No [id number] Information not available 01/12/2023 Do You Use Sunscreen Routinely? Yes MIGRATION.[id number] Information not available 01/12/2023 How Many Years Have You Smoked Tobacco? 0 MIGRATION.[id number] 1483 Information not available 01/12/2023 Have You Recently Traveled Abroad? No MIGRATION.[id number] 0250 Information not available 01/12/2023 Do You Have Any Dietary Restrictions? No MIGRATION.[id number] 8965 Information not available 01/12/2023 Sex: Unknown Functional Status Question Answer Note LastModified by Organizat ion Details LastModified Time Do you use any illicit or recreational drugs? No MIGRATION.[id number] Information not available 01/12/2023 Do you or have you ever used any other forms of tobacco or nicotine? No MIGRATION.870088 0794 Information not available 01/12/2023 What is your level of alcohol consumption? None Information not available 09/29/2023 Do you or have you ever used smokeless tobacco? 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 Never used electronic cigarettes MIGRATION.148994 5948 Information not available 01/12/2023 What is your exercise level? Moderate MIGRATION.487752 5687 Information not available 01/12/2023 Mental Status None recorded. Family History Relationship Description Onset Age of this Age Resolved Age Notes LastModified by Organization Details LastModified Time Mother Essential hypertension 72 [id number] Not available 01/12/2023 03:00:24 Mother Disease of liver MIGRATION.115 [id number] Not available 01/12/2023 03:00:24 Father Heart disease MIGRATION.414 [id number] Not available 01/12/2023 03:00:24 Father Essential hypertension MIGRATION.730 [id number] Not available 01/12/2023 03:00:24 Unspecified Relation Diabetes mellitus GRANDM A Not available 09/29/2023 10:22:19 Mother Arthritis Not available 09/29/2023 10:22:26 Mother Osteoporosis Not availa ble 09/29/2023 10:22:46 Medical History Condition Response NERVE DISEASE N BLINDNESS N RHEUMATIC FEVER N KIDNEY STONES N BLADDER PROBLEMS N OTHER # 1 N POLIO N LUNG DISEASE/DISORDER N RADIATION / CHEMOTHERAPY N COPD N Other # 2 N BLOOD DISEASES N SURGERY N EAR OR HEARING PROBLEMS N MUMPS N BOWEL PROBLEMS Y DEPRESSION (INCLUDING POST ) N STROKE/TIA N ULCERS Y BENIGN PROSTATIC HYPERPLASIA N MEASLES N MYOCARDIAL INFARCTION N OBESITY N GERD/NAUSEA N ANEURYSM N URINARY/BLADDER/KIDNEY PROBLEMS Y INPATIENT PSYCH CARE N CORONARY ARTERY DISEASE (CAD) N ADDICTION CONCERNS N ENDOMETRIOSIS N Impotence N USE OF BLOOD THINNERS N SKIN PROBLEMS Y GASTROINTESTINAL DISORDER N PERIPHERAL VASCULAR DISEASE N MUSCLE,JOINT OR BONE PROBLEMS N GASTROINTESTINAL BLEEDING N BLOOD CLOTS N ASTHMA N CATARACTS N ERECTILE DYSFUNCTION N VARICOSITIES N GI PROBLEMS N Low Testosterone N INFERTILITY N AIDS/HIV N LIVER DISEASE N MALE HYPOGONADISM N HYPERTENSION Y Deficiency N ANXIETY DISORDER Y BLOOD TRANSFUSION N ANEMIA/BLOOD DISORDER Y CHRONIC EAR INFECTIONS N BRONCHITIS N TUBERCULOSIS N GLAUCOMA N DIVERTICULITIS N CHICKENPOX N SLEEP APNEA N ALLERGIES/HAYFEVER Y INFECTIOUS DISEASE N HEART ARRHYTHMIA N PROSTATE N INSOMNIA N HIGH CHOLESTEROL / HYPERLIPIDEMIA Y HYPERTHYROIDISM N EYE PROBLEMS Y NEUROLOGICAL PROBLEMS N EDEMA N CHRONIC PAIN SYNDROME N HYPOTHYROIDISM N CAROTID BLOCKAGE N CONSTIPATION N BACK / NECK PROBLEMS Y HAVE YOU BEEN HOSPITALIZED OR SEEN IN [facility] IN THE PAST YEAR ? N ATHEROSCLEROSIS N BREAST PROBLEMS N DIALYSIS N ECZEMA N FIBROMYALGIA Y OSTEOPOROSIS N ARTHRITIS Y NO SIGNIFICANT PAST MEDICAL HISTORY N APPENDICITIS N DIABETES, TYPE N BAD TEETH N ENT N HEARTBURN / REFLUX Y AUTISM SPECTRUM DISORDER (ASD) N HEPATITIS / LIVER DISEASE N PULMONARY DISEASE N GOUT N SLEEP DISORDER N ALZHEIMER'S DISEASE N Brain Problems N HERPES N DEMENTIA N HEADACHES/MIGRAINES Y SEIZURES/EPILEPSY N VASCULAR DISEASE N PACEMAKER N Blood Disorder N DIZZINESS N HEART DISEASE/HEART PROBLEMS N KIDNEY DISEASE N MULTIPLE SCLEROSIS N CARDIAC ARRHYTHMIA N CANCER: SPECIFY Y ANESTHESIA COMPLICATIONS N ATRIAL FIBRILLATION N Gall Stones N PULMONARY EMBOLISM N AUTOIMMUNE DISEASE N Gynecological History Statement/Question Response Date of Last Pap 09/14/2019 Date of Last Mammogram 05/29/2020 Date of Last Colonoscopy 11/14/2014 Most Recent Bone Density 05/26/2017 Obstetrics History GPAL:G 2 P 0 0 0 1 Type Value Living 1 Total 2 Immunizations Vaccine Type Date Status Note Provider Nam e and Address Organization Details Recorded Time Influenza, split virus, quadrivalent, preservative 9 completed Not Available [facility] 01/12/2023 03:16:24 Influenza, split virus, quadrivalent, PF 9 completed Not Available [facility] 01/12/2023 03:16:24 Past Encounters Encounter ID Performer Location Encounter Start Date Encounter Closed Date Diagnosis/Indication Diagnosis SNOMED-CT Code Diagnosis ICD10 Code Diagnosis IMO Codes Diagnosis Note [id number] COLBY Woo [facility] [place] [address] [place] [address] 01/15/2021 00:00:00 01/21/2021 14:00:44 [id number] _ATHN_MIGR ATION_1 _ATHENA_M IGRATION_ DEFAULT_1 _1 , 05/06/2021 00:00:00 05/06/2021 16:03:26 [id number] COLBY Woo [facility] [place] [address] [place] [address] 08/13/2021 00:00:00 08/13/2021 15:23:35 [id number] Jeffy Calix MD [facility] [place] [address] [place] [address] 10/27/2021 00:00:00 10/27/2021 16:55:35 [id number] COLBY Woo [facility] [place] [address] [place] [address] 01/14/2022 00:00:00 02/11/2022 18:00:47 [id number] COLBY Woo [facility] [place] [address] [place] [address] 02/10/2022 00:00:00 02/10/2022 20:43:05 [id number] COLBY Woo [facility] [place] [address] [place] [address] 10/12/2022 00:00:00 10/12/2022 19:45:13 [id number] COLBY Woo [facility] [place] [address] [place] [address] 07/29/2023 15:41:25 07/29/2023 16:23:52 Long-term drug therapy 810000334 Z79.899 routine cbc, cmp, tfts due Benign ess ential hypertension 1133219 I10 stable Hiatal her yari with gastroesophageal reflux 311616695 K21.9 on PPI therapy Osteoarthritis 519089196 M19.90 hx noted. symptomati c. Irritable bowel syndrome characterized by constipation 962109221 K58.1 no changes. Hyperlipidemia 98962661 E78.5 on statin therapy, due for fasting labs Chronic in terstitial cystitis 005259540 N30.10 on Elmiron therapy Iron defic iency anemia 55281317 D50.9 iron studies due Pain of mu ltiple joints 26824662 M25.50 screening CRP, ESR, harlan, uric acid, RF panel. Diabetes m ellitus screening 627893852 Z13.1 screening diabetes due Acquired d eformity of toe of left foot 1839231967 86690 M20.62 refer to podiatry for evaluation . Dermatosis of scalp 4026 15363 L98.9 refill clobestol for prn use Acute sinusitis 55759673 J01.90 start zpack therapy Pain of bi lateral hip joints 4071272791 0095533 M25.551 M25.552 check xrays bilat. hips. refer to ortho Screening mammography 24 089474 Z12.31 mammogram due. ordered [id number] Carlton Maguire MD [facility] [address], [address] [place] [address] 08/25/2023 09:18:59 08/25/2023 10:50:55 Pain of bilateral hip joints 7284080795 0089879 M25.551 M25.552 [id number] Zoran Murry DPM [facility] [address] [place] [address] 09/29/2023 09:40:10 09/29/2023 10:45:28 Bunion [id number] M21.611 M21.612 educated on conditionR ecommend soft wide toe box shoe gearobtain x-rays for review of possible surgical treatments Hammer toe 678324321 M20 .41 M20.42 as above Pain in bi lateral feet 3060170754 8009550 M79.671 M79.951 [id number] Carlton Maguire MD [facility] [place] [address] [facility], [address] [place] [address] 10/13/2023 09:07:38 10/13/2023 10:12:09 Pain of bilateral hip joints 0613891276 0141598 M25.551 M25.039 [id number] Zoran Murry DPM [facility] [place] [address] [place] [address] 11/01/2023 09:04:15 11/02/2023 11:49:58 Pain in bilateral feet 7102044062 7288738 M79.671 M79.672 continue supportive shoe gear with new balance style shoe gearwide soft toe box shoe gear recommende dmonitor for wounds if present seek medical attention immediatel yfollow-up in November for surgical evaluation Bunion 721698275 M21.61 1 M21.612 educated on conditionR ecommend soft wide toe box shoe gearx-rays reviewed Hammer toe 175592654 M20 .41 M20.42 as above Right meta tarsus adductus 3536275189 5645180 Q66.221 as above [id number] Zoarn Murry DPM [facility] [place] [address] [place] [address] 12/01/2023 09:15:57 12/12/2023 14:04:06 Bunion 625458794 M21.611 M21.612 educated on conditionR ecommend soft wide toe box shoe gearx-rays reviewedPl an- arthrodesi s 1st metatarsop halangeal joint with 2nd hammertoe arthroplas tyfollow-u p in 1 month for surgery clearance Hammer toe 868584337 M20 .41 M20.42 as above [id number] Zoran Murry DPM [facility] [place] [address] [place] [address] 02/10/2024 16:54:59 02/13/2024 15:35:58 Bunion 490200016 M21.611 M21.612 educated on conditionR ecommend soft wide toe box shoe gearx-rays reviewedPl an-Left arthrodesi s 1st metatarsop halangeal joint with 2nd hammertoe arthroplas tyfollow-u p in 1 month for surgery clearance Hammer toe 653639146 M20 .41 M20.42 as above [id number] Zoran Murry DPM [facility] [place] [address] [address] 03/06/2024 08:46:17 03/06/2024 10:00:41 Postoperative visit 314955203 Z48.89 s/p 4 day- left arthrodesi s of first MTPJ and hammertoe 2nd repairdres sings changedkee p dressing clean and dryelevate leg when restingice behind the left knee 20min on and offfollow up in one week for dressing changecont post-op shoe and crutches [id number] Zoran Murry DPM [facility] [place] [address] [address] 03/13/2024 15:05:40 03/13/2024 16:57:56 Postoperative visit 304302538 Z48.89 s/p 10 day- left arthrodesi s of first MTPJ and hammertoe 2nd repairdres sings changedkee p dressing clean and dryelevate leg when restingice behind the left knee 20min on and offfollow up in one week for dressing changecont post-op shoe and crutchesFo llow-up 1 week for suture removal [id number] Zoran Murry DPM [facility] [place] [address] [address] 03/20/2024 12:29:43 03/21/2024 15:01:06 Cellulitis of left foot 3649962277 2964740 L03.116 sutures removedinc isions healed Postoperative visit 1837 76303 Z48.89 s/p 10 day- left arthrodesi s of first MTPJ and hammertoe 2nd repairdres sings changedkee p dressing clean and dryelevate leg when restingice behind the left knee 20min on and offfollow up in one week for dressing changecont post-op shoe and crutchesFo llow-up 2 week [id number] Zoran Murry DPM [facility] [place] [address] [place] [address] 04/02/2024 17:18:58 04/05/2024 12:24:16 Cellulitis of left foot 6423064623 7581492 L03.116 resolved Postoperative visit 1836 76530 Z48.89 left arthrodesi s of first MTPJ and hammertoe 2nd repairpin removaldre ssings changedkee p dressing clean and dryelevate leg when restingice behind the left knee 20min on and offfollow up in one week for dressing changecont post-op shoeFollow -up 2 week- repeat x-rays [id number] [facility] [place] [address] [place] [address] 04/17/2024 15:24:46 04/18/2024 13:54:31 Postoperative visit 127119938 Z48.89 left arthrodesi s of first MTPJ and hammertoe 2nd repairall healeddoin g wellmay transition to normal shoe gearif has pain transition back to postop shoeFollow -up Seven week- repeat x-rays [id number] [facility] [place] [address] [address] 06/05/2024 15:27:01 06/07/2024 13:57:19 Postoperative visit 952601826 Z48.89 left arthrodesi s of first MTPJ and hammertoe 2nd repairall healeddoin g well, no painin normal shoesrepea t xrays reviewed stable findingsfo llow up as needed [id number] Zoran Murry DPM [facility] [place] [address] [place] [address] 11/29/2024 16:37:30 01/11/2025 14:30:41 Pain of toe of right foot 3386748300 38830 M79.674 lengthy discussion with the patient- patient to obtain surgical clearancep heather arthrodesi s 1st MPJ with hammertoe arthroplas ty 2nd 3rd and 4th toesall risks, benefits, complicati ons reviewed with the patient to complete full understand ing. Patient elects to continue despite possible risks. Bunion 457338152 M21.61 1 M21.612 as above Hammer toe 621777959 M20 .41 M20.42 as above [id number] Zoran Murry DPM [facility] [address] [place] [address] 01/23/2025 16:57:05 01/24/2025 16:08:34 Pain of toe of right foot 6474672281 34427 M79.674 discussion with the patient- patient to obtain surgical clearancep heather arthrodesi s 1st MPJ with hammertoe arthroplas ty 2nd 3rd and 4th toesall risks, benefits, complicati ons reviewed with the patient to complete full understand ing. Patient elects to continue despite possible risks.once surgical cleared will schedule for surgery Bunion 171882810 M21.61 1 M21.612 as above Hammer toe 966778776 M20 .41 M20.42 as above Health Concerns Section Related Observation LastModified by Organization Detai ls LastModified Time None Recorded Concern Status LastModified by Organization Details LastModified Time None Recorded Advance Directives Directive N: Payers Insurance Date Sequence Insurance Name Policy Number Policy Yuan Covered Member ID Yuan Member ID Guarantor Name 01/21/2025 2 [employer] (PPO) Hayley Trujillo [id number] Hayley Trujillo 08/29/2023 1 [employer] Hayley Trujillo [id number] Hayley Trujillo 08/09/2023 1 [employer]ET[employer] [facility] - PREMI[employer] PLAN - DUAL (MEDICARE - MEDICAID REPLACEMENT HMO) Hayley Trujillo [id number] Hayley Trujillo 09/29/2023 1 [employer] [id number] Hayley Trujillo [id number] Hayley Trujillo 01/29/2025 1 [employer] - [employer] ([place]) [id number] Hayley Trujillo [id number] Hayley Trujillo Notes Date Note Type Note Provider Name and Address Organization Details Recorded Time 4 text/html . Patient is a 58-year-old female who returns the office for follow-up on 5 week postop visit for pin removal. Patient overall is doing well she is healed all incisions and has only mild swelling. Patient continues a postop shoe I did recommend she continue the postop shoe for approximately 2 more weeks and then we will transition normal shoe gear. Patient was educated on pin site wounds to prevent deep infection and will continue to monitor this until her next follow-up visit. Patient denies any other complaints. Zoran Murry DPM [address], [place], [address], [employer] 04/04/2024 10:39:22 4 text/html . Patient is a 59-year-old female who returns the office for follow-up on fusion of the 1st metatarsophalangeal joint and 2nd toe. Patient overall is doing very well she denies any pain she has been walking in a postop shoe. Patient's incisions are well healed she has no swelling bruising or signs of infection. Patient denies any pain with walking. Patient had x-rays today it was reviewed with the patient to have stable findings. Patient still has some healing to the 1st metatarsophalangeal joint fusion and PIP joint but overall she has good correction and no failed hardware. Patient denies any other complaints. Zoran Murry DPM [address], [place], [address], [employer] 04/17/2024 16:24:41 4 text/html . Patient is a 59-year-old female she returns for follow-up on postoperative fusion of the 1st metatarsophalangeal joint and 2nd toe. Patient had repeat x-rays which shows good consolidation and toe correction of the toes. Patient states overall she is doing well she denies any swelling pain with walking. Patient denies any other complaints. Zoran Murry DPM [address], [place], [address], [employer] 06/07/2024 09:17:03 5 text/html . Patient is a 59-year-old female who returns for complaints of pain to her right foot she has hammertoes and a bunion deformity she has tried conservative therapy and she continues have pain she denies any open wounds or infection she had x-rays today which I reviewed with the patient I reviewed surgical options which I recommended arthrodesis of the 1st metatarsophalangeal joint with arthroplasty of the toes 2 3 and 4. Patient states understanding. Patient would like to schedule surgery in January. Patient denies any other complaints. Zoran Murry DPM [address], [place], [address], [employer] 01/10/2025 09:15:08 5 text/html . Patient is a 59-year-old female who returns to office for follow-up on right foot pain. Patient is obtaining her clearance for surgery she will obtain her labs and EKG this week. Patient denies any changes in health. Patient states that she wants to proceed with arthrodesis of the 1st MPJ and hammertoe arthroplasty of the 2nd 3rd and 4th toes Of the right foot. Patient denies any other complaints. Zoran Murry DPM [address], [place], [address], [employer] 01/24/2025 10:10:52 OBGyn Episode No OBEpisode recorded.
--- OUTSIDE RECORDS SUMMARY | 2025-10-22 17:57 | XMS_ITS | Continuity of Care Document ---
Author Organization [place] - [place], S[facility] Gigi Buchanan Address [address] [place] [address] Care Team Providers Care Appliance Fixer Name Role Phone SOO PIRES Primary Care Provider Unavailab le Assessment Encounter Date Assessment Date Assessment LastModified by Organization Details LastModified Time 07/23/2025 07/23/2025 eye exam due now dental visit -false teeth labs due Mammogram June 24, 2025 Colonoscopy March 30, 2021 [email or web address] Not available 07/23/2025 16:31:02 Plan of Treatment Reminders Order Date Submit Date Provider Last Modified By Organization Details Last Modified Time Details Appointments ANY 15 2025 03:00P M COLBY Woo Not available Not available Not available Lab glycohemo globin, total, blood [address] (Lab), [address] [place], [address], 10/14/2025 12:21:34 CMP, serum or plasma [address] (Lab), [address] [place], [address], 10/14/2025 12:21:33 TSH, serum or plasma [address] (Lab), [address] [place], [address], 10/14/2025 12:21:34 T4, free, serum [address] (Lab), [address] [place], [address], 10/14/2025 12:21:34 lipid panel, serum [address] (Lab), [address] [place], [address], 10/14/2025 12:21:33 vitamin B12 + folate, serum or blood [address] (Lab), [address] [place], [address], 10/14/2025 12:21:33 iron + total iron-bind ing capacity (TIBC), serum [address] (Lab), [address] [place], [address], 10/14/2025 12:21:33 ferritin, serum or plasma [address] (Lab), [address] [place], [address], 10/14/2025 12:21:33 CBC w/ auto diff [address] (Lab), [address] [place], [address], 10/14/2025 12:21:34 Referral None recorded. Procedures None recorded. Surgeries None recorded. Imaging XR, hip, unilatera l, 2 or 3 view [address] ([facility]), [address] [place], [address], 10/11/2025 12:18:27 XR, lumbosacr al spine, 2 or 3 view [address] ([facility]), [address] [place], [address], 10/11/2025 12:18:27 Medication Orders None recorded. Patient TargetsNo targets recorded. Patient Instructions Encounter Date Encounter Id Patient Instructions Last Modified By Organization Details Last Modified Time 07/23/2025 [id number] A healthy lifestyle: care instructions [email or web address] Not available 07/23/2025 16:12:37 Reason for Referral None Reported. Results Created Date Observation Date Name Description Value Unit Range Abnormal Flag Note LastModifiedBy Organization Detail LastModifiedTime 06/24/2006/24/2025 MAMMO , scree gavin, digit al, bilat eral No observ ation record ed. [email or web address] [facility] [address] [place], [address], 08/10/2025 23:11:02 Result Notes None recorded. Problems Name Problem SNOMED Code Status Onset Date Resolution Date Notes Provider Name and Address Organization Details Recorded Time Gastroesoph ageal reflux disease 113129385 Active 2023 Sandra Whitaker [facility], [place] - [place] 4 10:28:18 Hyperlipide ole 36470140 Active 2023 COLBY Woo Attn: Rei bolanos,[address] [place], [address], [facility] - [facility] 5 23:12:47 Benign essential hypertensio n 2852001 Active 2023 COLBY Woo Attn: Rei bolanos,[address] [place], [address], [place] 5 23:12:48 Chronic interstitia l cystitis 495582468 Active 2023 COLBY Woo Attn: Rei bolanos,[address] [place], [address], [facility] - [facility] 5 23:12:45 Prediabetes 760625064 Active 2023 COLBY Woo Attn: Rei bolanos,[address] [place], [address], [place] - [facility] 5 23:12:44 Iron deficiency anemia 49895189 Active 2023 COLBY Woo Attn: Accountin g,[address] [facility], [place], [address], [place] [facility] 4 17:16:00 Chronic insomnia 294514403 Active 2023 COLBY Woo Attn: Accountin g,[address] [facility], [place], [address], [place] [facility] 4 17:16:02 Osteoarthri tis 579712721 Active 2023 COLBY Woo Attn: Accountin g,[address] [facility], [place], [address], [place] [facility] 4 17:16:03 Mixed anxiety and depressive disorder 170256012 Active 2023 COLBY Woo Attn: Accountin g,[address] [facility], [place], [address], [place] - [facility] 5 23:12:43 Irritable bowel syndrome characteriz ed by constipatio n 808324093 Active 2023 COLBY Woo Attn: Accountin g,[address] [facility], [place], [address], [place] [facility] 4 17:16:06 Acid reflux 915168564 Active 2023 OCLBY Woo Attn: Accountin g,[address] [facility], [place], [address], [place] [facility] 4 17:16:07 Long-term drug therapy Active 2023 COLBY Woo Attn: Accountin g,[address] [facility], [place], [address], [place] - [facility] 4 17:16:09 Obesity 486358402 Active 2024 COLBY Woo Attn: Rei bolanos,[address] [facility], [place], [address], [place] [facility] 5 10:00:30 Body mass index 30+ - obesity 363067953 Active 2024 COLBY Woo Attn: Rei g,[address] [facility], [place], [address], [place] [facility] 5 10:00:30 Congestion of nasal sinus 21669306 Active 2024 COLBY Woo Attn: Accountjesus g,[address] [facility], [place], [address], [place] [facility] 5 10:00:45 Obese class II 0568228504238 05 Active 2024 COLBY Woo Attn: Rei bolanos,[address] [facility], [place], [address], [place] - [facility] 5 16:10:38 Problem Notes None recorded. Procedures Surgical History Date Name Laterality Status Provider Name and Address Organization Details Recorded Time 021 colonoscopy completed Sandra Whitaker [facility] 02/07/2024 13:28:51 Dilation and Curettage completed Joanne Fontana MA [facility] 01/26/2024 16:16:13 delivery completed Joanne patel MA [facility] 01/26/2024 16:16:28 procedure on esophagus completed Joanne Fontana MA [facility] 01/26/2024 16:22:06 Carpal tunnel surgery completed Joanne Fontana MA [facility] 01/26/2024 16:21:17 parathyroidectomy completed Joanne patel MA [facility] 01/26/2024 16:21:42 cholecystectomy completed Joanne clark MA [facility] 01/26/2024 16:21:53 Imaging Results None recorded. Procedure Notes None recorded. Medical Equipment None Reported. Allergies Allergen ID Allergen Name Allergen Category Reaction Reaction Severity Criticality Documentation Date Start Date Code Code System Note Provider Name and Address Organization Details Recorded Time 099108 adhesive environme nt,medica tion hives rash Not available Not available low 01/26/2024 Joanne Fontana [place] null, [place] - [facility] 4 16:13:34 943108 Product containin g penicilli n (product) medicatio n eye swelling Not available low 01/26/2024 85789 8001 SNOMED Joanne Fontana [place] null, [place] 4 16:14:03 086941 penicilli n V Not available Not available Not available Not available 07/23/2025 7984 RxNorm Merced Mejia [place] null, [place] - [place] 5 16:02:09 Medications Name Sig Start Date Stop Date Status Note LastModified by Organization Details LastModified Time cyclobenzap rine 10 mg tablet TAKE 1 TABLET BY MOUTH THREE TIMES A DAY NEEDED active Not Available Not Available No t Available doxycycline hyclate 100 mg capsule TAKE 1 CAPSULE BY MOUTH TWICE A DAY WITH FOOD 06/06 completed Not Available Not Available Not Available atorvastati n 20 mg tablet TAKE 1 TABLET BY MOUTH EVERY DAY active Not Available Not Available No t Available clindamycin HCl 300 mg capsule TAKE 1 CAPSULE BY MOUTH EVERY 6 HOURS 07/23 completed Not Available Not Available Not Available azithromyci n 250 mg tablet TAKE 2 TABLETS BY MOUTH TODAY, THEN TAKE 1 TABLET DAILY FOR 4 DAYS DIRECTED 04/02 completed Not Available Not Available Not Available propranolol ER 60 mg capsule,24 hr,extended release TAKE 1 CAPSULE BY MOUTH EVERY DAY active Not Available Not Available No t Available Elmiron 100 mg capsule Take 1 capsule(s ) twice a day by oral route. 07/23 completed Not Available Not Available Not Available clindamycin HCl 150 mg capsule Take 1 capsule as needed by oral route for 7 days. active Not Available Not Available No t Available tramadol 50 mg tablet Take 1 tablet(s) every 6 hours by oral route. active Not Available Not Available No t Available amitriptyli ne 50 mg tablet Take 1 tablet by oral route for 90 days. active Not Available Not Available No t Available triamcinolo ne acetonide 0.1 % topical cream APPLY THIN LAYER TO AFFECTED AREAS ON BACK TWICE DAILY active Not Available Not Available No t Available oxycodone-a cetaminophe n 5 mg-325 mg tablet 06/06 completed Not Available Not Available Not Available triamcinolo ne acetonide 0.1 % dental paste USE DIRECTED active Not Available Not Available No t Available pantoprazol e 40 mg tablet,americo yed release TAKE 1 TABLET BY MOUTH EVERY DAY active Not Available Not Available No t Available gabapentin 300 mg capsule Take 1 capsule every day by oral route for 90 days. active Not Available Not Available No t Available montelukast 10 mg tablet TAKE 1 TABLET BY MOUTH EVERY DAY active Not Available Not Available No t Available hydroxyzine HCl 25 mg tablet TAKE 1 TABLET BY MOUTH EVERYDAY AT BEDTIME 2024 active Not Available Not Available Not Avai lable lorazepam 1 mg tablet TAKE 1 TABLET BY MOUTH TWICE A DAY NEEDED active Not Available Not Available No t Available fluticasone propionate 50 mcg/actuati on nasal spray,suspe nsion SPRAY 2 SPRAYS INTRANASA LLY EVERY DAY DIRECTED active Not Available Not Available No t Available buspirone 15 mg tablet TAKE 1 TABLET BY MOUTH TWICE A DAY active Not Available Not Available No t Available Pepcid AC 20 mg tablet Take 2 tablets every day by oral route in the evening. active Not Available Not Available No t Available clobetasol 0.05 % shampoo active Not Available Not Available Not Available duloxetine 30 mg capsule,del ayed release TAKE 1 CAPSULE BY MOUTH EVERY DAY active Not Available Not Available No t Available duloxetine 60 mg capsule,del ayed release Take 1 capsule every day by oral route for 90 days. active Not Available Not Available No t Available propranolol 01/25 completed Not Available Not Available Not Available ferrous gluconate 324 mg (38 mg iron) tablet TAKE 1 TABLET BY MOUTH EVERY DAY 07/31 completed Not Available Not Available Not Available Linzess 145 mcg capsule TAKE 1 CAPSULE BY MOUTH EVERY DAY active Not Available Not Available No t Available Vitals Date Recorded Body height Body mass index (BMI) Body weight Respiratory rate Heart rate Oxygen saturation Systolic And Diastolic Provider Name and Address Organization Details Last Updated DateTime 5 162.56 cm 35.2 kg/m2 76393.4 4 g 18 /min 72 /min 100 % 116/82 mm[Hg] Merced Mejia [place] - [facility] 5 16:06:09 Social History Question Answer Notes LastModified by Organizat ion Details LastModified Time Tobacco Smoking Status Never Smoker Joanne Fontana MA [facility], [place] - [facility] 01/26/2024 16:25:43 Do You Have An Advance Directive? No Information not available 01/22/2025 Are You Blind Or Do You Have Difficulty Seeing? Yes Glasses Information not available 01/22/2025 What Is Your Level Of Caffeine Consumption? Moderate Information not available 01/26/2024 In The 14 Days Before Symptom Onset, Have You Had Close Contact With A Laboratory-confir med COVID-19 While That Case Was Ill? No Information not available 07/23/2025 In The 14 Days Before Symptom Onset, Have You Had Close Contact With A Person Who Is Under Investigation For COVID-19 While That Person Was Ill? No Information not available 07/23/2025 Have You Been To An Area Known To Be High Risk For COVID-19? No Information not available 07/23/2025 Are You Deaf Or Do You Have Serious Difficulty Hearing? Yes Ear Ringing Information not available 01/22/2025 What Type Of Diet Are You Following? REGULAR Information not available 07/23/2025 Are There Any Guns Present In Your Home? No Information not available 01/22/2025 What Was The Date Of Your Most Recent Tobacco Screening? 07/23/2025 Information not available 07/23/2025 What Is Your Relationship Status? Other Seperated 12 Years Information not available 01/22/2025 Do You Use Your Seat Belt Or Car Seat Routinely? Yes Information not available 01/22/2025 Do You Have Smoke And Carbon Monoxide Detectors In Your Home? Yes Information not available 01/22/2025 Do You Use Sunscreen Routinely? Yes Information not available 01/22/2025 Has Tobacco Cessation Counseling Been Provided? No Information not available 01/26/2024 Sex: Female Functional Status Question Answer Note LastModified by Organizat ion Details LastModified Time Do you use any illicit or recreational drugs? No Information not available 01/26/2024 Do you or have you ever used any other forms of tobacco or nicotine? No Information not available 07/23/2025 What is your level of alcohol consumption? None Information not available 01/22/2025 Are you currently employed? Yes Information not available 01/22/2025 Are you able to care for yourself independently? 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 [id number] Information not available 01/22/2025 Family History Relationship Description Onset Age of this Age Resolved Age Notes LastModified by Organization Details LastModified Time Father Dementia [email or web address] Not available 01/26/2024 16:22:36 Father Diabetes mellitus [email or web address] Not available 2023 16:22:59 Father Heart disease [email or web address] Not available 2023 16:23:25 Father Hypertensive disorder [email or web address] Not available 2023 16:23:42 Father Hypercholest erolemia [email or web address] Not available 2023 16:23:56 Father Parkinson's disease [email or web address] Not available 2023 16:24:41 Mother Depressive disorder [email or web address] Not available 2023 16:22:47 Mother Diabetes mellitus [email or web address] Not available 2023 16:22:59 Mother Disorder of thyroid gland [email or web address] Not available 2023 16:23:11 Mother Hypertensive disorder [email or web address] Not available 2023 16:23:42 Mother Migraine [email or web address] Not available 01/26/2024 16:24:05 Mother Disease of liver [email or web address] Not available 2023 16:24:21 Sister Hypertensive disorder [email or web address] Not available 2023 16:23:42 Medical History Condition Response Coronary Artery Disease N Other N Atrial Fibrillation N High Blood Pressure Y Thyroid Problems N Kidney or Bladder Problems Y Depression N COPD N Blood Clots N GI Problems Y Skin Problems N Anemia N Heart Attack ([place]) N Diabetes N Anxiety Disorder N Muscle, Joint, or Bone Problems Y Seizures/Epilepsy N Acid Reflux (GERD) Y Cancer Y Stroke N Allergies Y Asthma N High Cholesterol Y Hepatitis N Liver Disease N Headaches Y Osteoporosis N Heart Failure N Gynecological History Statement/Question Response Menses Monthly N If Post Menopausal, Age at Menopause 51 Obstetrics History GPAL:G 1 P 1 0 0 0 Type Value Full Term 1 Total 1 Past Encounters Encounter ID Performer Location Encounter Start Date Encounter Closed Date Diagnosis/Indication Diagnosis SNOMED-CT Code Diagnosis ICD10 Code Diagnosis IMO Codes Diagnosis Note [id number] Fernando Bejarano MD [facility] [place] [address] [place] [address] 07/23/2025 15:54:49 07/29/2025 12:42:34 Obese class II 5441358550 87567 E66.812 E66.3 2612121018 discussed healthy diet, exercise, controllin g carbohydra damien and added sugars in the diet 35.2 Benign ess ential hypertension 7166240 I10 Blood pressure stable 116/82 Hyperlipidemia 86059084 E78.5 stable on statin therapy, due for fasting lipid panel now Chronic in terstitial cystitis 001204443 N30.10 Patient has been on Elmiron in the past but that is no longer covered on insurance. She does need to follow back up with urologist for other options Prediabetes 044945735 R7 3.03 6.1% A1c on last labs but she is due for updated A1c Mixed anxi ety and depressive disorder 037764842 F41.8 stable on buspar and duloxetine therapy, no acute concerns Acid reflux 375070391 K2 1.9 pt is on PPI and H2b therapy. Stable reflux Chronic insomnia 3428859 04 F51.04 pt takes lorazepam 1mg qhs Irritable bowel syndrome characterized by constipation 401793644 K58.1 chronic c/o. Linzess 145mcg daily is helpful. colonoscop y is UTD from 03/30/2021 Osteoarthritis 011991115 M19.90 pt takes tramadol 50mg PRN Iron defic iency anemia 28980111 D50.9 Patient continues with iron deficiency anemia. Patient did see hematology . See note. Vitamin B12, folate, iron studies and CBC are due Long-term drug therapy 677574021 Z79.899 Metabolic panel and thyroid testing due Adult heal th examination 378138706 Z00.00 0026953 wellness exam completed. Low back pain 183436787 M54.59 4609182987 Check plain film x-ray of the lumbosacra l spine for exacerbati on of low back pain Pain of hip region 16682 002 M25.062 742265 Check left hip x-ray for complaint of discomfort ongoing Health Concerns Section Related Observation LastModified by Organization Detai ls LastModified Time None Recorded Concern Status LastModified by Organization Details LastModified Time None Recorded Payers Encounter Date Sequence Insurance Name Policy Number Policy Yuan Covered Member ID Yuan Member ID Guarantor Name 07/23/2025 1 [employer] ([facility]) [id number] Mark Trujillo [id number] Hayley Ashlee Cassandra Notes Date Note Type Note Provider Name and Address Organization Details Recorded Time 5 text/html HyperlipidemiaReported by Patientpt is stable on atorvastatin 20mg daily HypertensionReported by Patientpt takes propranolol ER 60mg daily and stable. Urinary FrequencyReported by Patienthx of I.[place]. pt is stable. no acute complaints. on Elmiron therapy. Generic HPI TemplateReported by Patientprediabetes. Managed with diet Anxiety/DepressionReported by Patientpt is stable on buspar 15mg bid and duloxetine 90mg daily. HeadacheReported by Patientpt takes propranolol ER 60mg daily for migraine prevention . stable. Reflux/GERDReported by Patientpt takes PPI therapy and pepcid therapy for reflux control. IBS constipation history on Linzess fair control. Patient complaints of low back pain exacerbation from her baseline and also the left hip is starting to bother her quite a bit with weight-bearing and ambulation. No injuries COLBY Woo Attn: Accounting,[address] [facility], [place], [address], [facility] - [facility] 08/10/2025 23:14:27 OBGyn Episode No OBEpisode recorded.
--- OUTSIDE RECORDS SUMMARY | 2025-10-22 17:57 | XMS_ITS | Patient Health Record ---
Author Organization [facility] Address [address] [place], [place] [id number] Care Team Providers Care Business Development Associate Name Role Phone YASMEEN BALL Unavailable [phone] Dominique Alfreda Unavailable Unavailable Allergies Allergen (clinical drug ingredient) Drug/Non Drug Allergy documented on EMR Reaction Allergy Type Onset Date Status Adhesive Unknown Allergy Active Penicillin Unknown Drug Allergy Active Reason For Referral No Information Medications Medication SIG (Take, Route, Frequency, Duration) Notes Start Date End Date Status Flexeril Active Gabapentin 300 MG Capsule 1 capsule Oral ly Once a day Active LORazepam 1 MG/0.5ML Concentrate 1 mL as needed Orally Twice a day Active Singulair 10 MG Tablet 1 tablet Orally Once a day Active Atorvastatin Calcium 20 MG Tablet 1 tablet Orally Once a day A ctive hydrOXYzine HCl 25 MG/ML Solution as directed Intramuscular Ac tive Pantoprazole Sodium 40 MG Tablet Delayed Release 1 tablet 1/2 to 1 hour before morning meal Orally Once a day Active busPIRone HCl 15 MG Tablet 1 tablet Oral ly Twice a day Active Propranolol HCl 60 MG Tablet 1 tablet Orally Twice a day Active Cymbalta 60 MG Capsule Delayed Release Particles 1 capsule Orally Once a day Active Social History Tobacco Use: Social History Observation Description Date Details (start date - stop date) Former Smoker 04/14/1982 - NA Social History Tobacco Use: Social Info Question Answer Notes Tobacco Control (Standard) Tobacco use: Former smoker When did you start smoking? 04/14/1982 Additional Details Category Social Info Options Details Drugs/Alcohol: Do you drink alcohol? No Vital Signs Height-cm 162.56 cm 04/15/2025 Weight-kg 89.81 kg 04/15/2025 Height 64 in 04/15/2025 Weight 198 lbs 04/15/2025 BMI 33.98 kg/m2 04/15/2025 Encounters Encounter Location Date Provider Diagnosis [facility] [address] [place], [place] [id number] 04/15/2025 YASMEEN AZARGillian Other hammer toe(s) (acquired), right foot M20.41 ; Hallux valgus (acquired), right foot M20.11 and Pain in right foot M79.671 Assessments Encounter Date Diagnosis (ICD Code) Assessment Notes Treatment Notes Treatment Clinical Notes Section Notes 04/15/2025 Hallux valgus (acquired), right foot (ICD-10 - M20.11) Bunion: Discussed various treatments with the patient regarding hallux abducto valgus deformity. Discussed conservative care consisting of padding, wider shoes, anti-inflammatori es, and orthotics. Discussed surgical treatment options and answered all questions about the intra-operative and post-operative treatment course. 04/15/2025 Other hammer toe(s) (acquired), right foot (ICD-10 - M20.41) Hammertoe Deformity: Discussed various treatments for hammer toes with the patient . Discussed conservative care consisting of padding, wider shoes, anti-inflammatori es, and orthotics. Discussed surgical treatment options and answered all questions about the intra-operative and post-operative treatment course. 04/15/2025 Pain in right foot (ICD-10 - M79.671) 04/15/2025 Other The patient did well with a fusion on her left. I antiicpate correcting the right bunion with either a 1st MPJ fusion or possibly a Lapidus. I discussed the post-operative recovery period for both, as well as hammertoe surgery. The patient will report back if/when she can comply with the post-op requirements (not driving) Plan Of Treatment No Information Insurance Providers Payer Name Payer Address Payer Phone Subscriber Number Group Number Insured Name Patient Relationship to Insured Coverage Start Date Coverage End Date [address] [id number] [place] [id number] Cassandra, Hayley Self - patient is the insured Medical (General) History Medical History History ICD Code acid reflux fibromyalgia anemia Cancer Leg/Feet cramps Arthritis skin cancer varicose veins high blood pressure Surgical History Surgery Date(Month/Year) section 1988 esophagectomy 2000 Carpal Tunnel release 2011 parathyroidectomy 2008 Gall Bladder 2008 bunionectomy 2023
--- OUTSIDE RECORDS SUMMARY | 2025-10-22 17:57 | XMS_ITS | Data Portability ---
Author Organization [facility] ALFONZOSiobhan Address [address] [place] [address] Care Team Providers Care Screen Cleaner Name Role Phone ALFREDA FOX Primary Care Provider Unavailab le Assessment Encounter Date Assessment Date Assessment LastModified by Organization Details LastModified Time 07/31/2024 07/31/2024 eye exam due now dental visit -false teeth labs UTD Not available 07/31/2024 17:08:09 01/22/2025 01/22/2025 eye exam due now dental visit -false teeth labs UTD Not available 01/22/2025 15:36:37 07/23/2025 07/23/2025 eye exam due now dental visit -false teeth labs due Mammogram June 24, 2025 Colonoscopy March 30, 2021 Not available 07/23/2025 16:31:02 Plan of Treatment Reminders Order Date Submit Date Provider Last Modified By Organization Details Last Modified Time Details Appointments ANY 15 2025 03:00P M COLBY Woo Not available Not available Not available Lab glycohemo globin, total, blood [address] (Lab), [address] [place], [address], 10/14/2025 12:21:34 CMP, serum or plasma [address] (Lab), [address] [place], [address], 10/14/2025 12:21:33 TSH, serum or plasma [address] (Lab), [address] [place], [address], 10/14/2025 12:21:34 T4, free, serum [address] (Lab), [address] [place], [address], 10/14/2025 12:21:34 lipid panel, serum [address] (Lab), [address] [place], [address], 10/14/2025 12:21:33 vitamin B12 + folate, serum or blood [address] (Lab), [address] [place], [address], 10/14/2025 12:21:33 iron + total iron-bind ing capacity (TIBC), serum [address] (Lab), [address] [place], [address], 10/14/2025 12:21:33 ferritin, serum or plasma [address] (Lab), [address] [place], [address], 10/14/2025 12:21:33 CBC w/ auto diff [address] (Lab), [address] [place], [address], 10/14/2025 12:21:34 glycohemo globin, total, blood 2024 025 [email or web address] [facility] (Lab), [address] [place], [address], 02/06/2025 10:53:11 [facility], serum or [facility] [address] [place], [address], 02/05/2025 14:50:42 TSH, serum or plasma 2024 025 [facility] (Lab), [address] [place], [address], 02/06/2025 10:53:11 T4, free, serum 2024 025 [facility] (Lab), [address] [place], [address], 02/12/2025 16:20:11 lipid panel, serum 2024 025 [facility] (Lab), [address] [place], [address], 02/12/2025 16:17:33 vitamin B12 + folate, serum or blood 2024 025 [facility] (Lab), [address] [place], [address], 02/06/2025 10:53:40 iron + total iron-bind ing capacity (TIBC), serum 2024 025 [facility] (Lab), [address] [place], [address], 02/06/2025 10:53:40 ferritin, serum or plasma 2024 025 [facility] (Lab), [address] [place], [address], 02/06/2025 10:53:40 CBC w/ auto diff 2024 025 JERMAINE [facility] (Lab), [address] [place], [address], 02/05/2025 14:50:43 glycohemo globin, total, blood 2023 025 [email or web address] [facility] (Lab), [address] [place], [address], 01/23/2025 09:13:50 CMP, serum or plasma 2023 025 [email or web address] [facility] (Lab), [address] [place], [address], 01/23/2025 09:12:57 TSH, serum or plasma 2023 025 [email or web address] [facility] (Lab), [address] [place], [address], 01/23/2025 09:14:12 T4, free, serum 2023 025 [email or web address] [facility] (Lab), [address] [place], [address], 01/23/2025 09:14:03 lipid panel, serum 2023 025 [email or web address] [facility] (Lab), [address] [place], [address], 01/23/2025 09:12:43 vitamin B12 + folate, serum or blood 2023 025 [email or web address] [facility] (Lab), [address] [place], [address], 01/23/2025 09:13:07 iron + total iron-bind ing capacity (TIBC), serum 2023 025 [email or web address] [facility] (Lab), [address] [place], [address], 01/23/2025 09:13:18 ferritin, serum or plasma [address] (Lab), [address] [place], [address], 01/23/2025 09:13:30 CBC w/ auto diff [address] (Lab), [address] [place], [address], 01/23/2025 09:13:40 Referral urologist referral 2024 025 JERMAINE Price MD, [address], [address], [place], [address], 04/22/2025 17:48:50 hematolog ist referral - patient intereste d in iron infusion, does not tolerate oral iron well. [address] [facility] H[facility], [address], [place], [address], 03/07/2025 15:40:21 Procedures None recorded. Surgeries None recorded. Imaging XR, hip, unilatera l, 2 or 3 view [address] ([facility]), [address] [place], [address], 10/11/2025 12:18:27 XR, lumbosacr al spine, 2 or 3 view [address] ([facility]), [address] [place], [address], 10/11/2025 12:18:27 MAMMO, screening , digital, bilateral 2024 025 [facility] ([facility]), [address] [place], [address], 06/24/2025 12:23:07 electroca rdiogram - 12 lead EKG 2024 025 [email or web address] [facility] ([facility]), [address] [place], [address], 02/15/2025 14:31:57 Medication Orders fluticaso ne propionat e 50 mcg/actua tion nasal spray,luciana pension 2024 025 [facility]/Pharmacy #[id number], [address], [place], [address], 01/22/2025 15:51:44 Patient TargetsNo targets recorded. Patient Instructions Encounter Date Encounter Id Patient Instructions Last Modified By Organization Details Last Modified Time 01/22/2025 [id number] A healthy lifestyle: care instructions [place] [id number] Not available 01/22/2025 15:51:31 07/23/2025 [id number] A healthy lifestyle: care instructions [place] [id number] Not available 07/23/2025 16:12:37 Reason for Referral patient interested in iron i nfusion, does not tolerate oral iron well. Referring Physician: Alfreda Fox, Internal Medicine, Encounter Date: 07/31/2024 Urologist Referral for Chron ic interstitial cystitis consult. her urologist retired. hx of Elmiron use. Referring Physician: Alfreda Fox, Internal Medicine, Encounter Date: 01/22/2025 Results Created Date Observation Date Name Description Value Unit Range Abnormal Flag Note LastModifiedBy Organization Detail LastModifiedTime 01/30/2001/30/2024 elect ami xionggr am, routi ne ECG, 12 leads min No observ ation record ed. [address] ([facility]) [address] [place], [address], 02/07/2024 09:40:56 02/07/20 24 03/30/2021 colon oscop y scree gavin (PROC ) No observ ation record ed. [address] [place], [address], 08/13/2024 09:36:24 05/29/20 24 05/29/2024 MAMMO jacky, digit al, bilat eral No observ ation record ed. [email or web address] [facility] [address] [place], [address], 08/13/2024 09:36:22 06/24/20 25 06/24/2025 MAMMO , jacky alonso, digit al, bilat eral No observ ation record ed. [facility] [address] [place], [address], 08/10/2025 23:11:02 Result Notes None recorded. Problems Name Problem SNOMED Code Status Onset Date Resolution Date Notes Provider Name and Address Organization Details Recorded Time Gastroesoph ageal reflux disease 100890042 Active 2023 Sandra Whitaker [facility], [place] 4 10:28:18 Hyperlipide ole 08553343 Active 2023 COLBY Woo Attn: Rei bolanos,[address] [place], [address], [facility] - [facility] 23:12:47 Benign essential hypertensio n 6988225 Active 2023 COLBY Woo Attn: Rei bolanos,[address] [place], [address], [facility] - [facility] 5 23:12:48 Chronic interstitia l cystitis 799838677 Active 2023 COLBY Woo Attn: Rei bolanos,[address] [place], [address], [facility] - [facility] 5 23:12:45 Prediabetes 985426973 Active 2023 COLBY Woo Attn: Rei bolanos,[address] [place], [address], [place] [facility] 5 23:12:44 Iron deficiency anemia 90721521 Active 2023 COLBY Woo Attn: Accountin g,[address] [facility], [place], [address], [place] [facility] 4 17:16:00 Chronic insomnia 142448957 Active 2023 COLBY Woo Attn: Accountin g,[address] [facility], [place], [address], [place] [facility] 4 17:16:02 Osteoarthri tis 024156779 Active 2023 COLBY Woo Attn: Accountin g,[address] [place], [address], [place] [facility] 4 17:16:03 Mixed anxiety and depressive disorder 031144437 Active 2023 COLBY Woo Attn: Accountin g,[address] [facility], [place], [address], [place] [facility] 5 23:12:43 Irritable bowel syndrome characteriz ed by constipatio n 566933519 Active 2023 COLBY Woo Attn: Accountin g,[address] [place], [address], [place] [facility] 4 17:16:06 Acid reflux 880178921 Active 2023 COLBY Woo Attn: Accountin g,[address] [place], [address], [place] [facility] 4 17:16:07 Long-term drug therapy Active 2023 COLBY Woo Attn: Accountin g,[address] [place], [address], [place] [facility] 4 17:16:09 Obesity 822420404 Active 2024 COLBY Woo Attn: Rei g,[address] [place], [address], [place] [facility] 5 10:00:30 Body mass index 30+ - obesity 609954701 Active 2024 COLBY Woo Attn: Rei bolanos,[address] [facility], [place], [address], [place] [facility] 5 10:00:30 Congestion of nasal sinus 32063606 Active 2024 COLBY Woo Attn: Rei g,[address] [facility], [place], [address], [place] [facility] 5 10:00:45 Obese class II 7980018645446 05 Active 2024 COLBY Woo Attn: Rei bolanos,[address] [facility], [place], [address], [place] [facility] 5 16:10:38 Problem Notes None recorded. Procedures Surgical History Date Name Laterality Status Provider Name and Address Organization Details Recorded Time 021 colonoscopy completed Sandra Whitaker [place] - [facility] 02/07/2024 13:28:51 Dilation and Curettage completed Joanne Fontana MA [facility] 01/26/2024 16:16:13 delivery completed Joanne patel MA [facility] 01/26/2024 16:16:28 procedure on esophagus completed Joanne Fontana MA [facility] 01/26/2024 16:22:06 Carpal tunnel surgery completed Joanne Fontana MA [facility] 01/26/2024 16:21:17 parathyroidectomy completed Joanne patel MA [facility] 01/26/2024 16:21:42 cholecystectomy completed Joanne clark MA [facility] 01/26/2024 16:21:53 Imaging Results None recorded. Procedure Notes None recorded. Medical Equipment None Reported. Allergies Allergen ID Allergen Name Allergen Category Reaction Reaction Severity Criticality Documentation Date Start Date Code Code System Note Provider Name and Address Organization Details Recorded Time 253078 adhesive environme nt,medica tion hives rash Not available Not available low 01/26/2024 Joanne Fontana [place] null, [place] 4 16:13:34 776907 Product containin g penicilli n (product) medicatio n eye swelling Not available low 01/26/2024 52493 8001 SNOMED Joanne Fontana [place] null, [place] 4 16:14:03 206351 penicilli n V Not available Not available Not available Not available 07/23/2025 7984 RxNorm Merced Mejia MA null, [facility] 5 16:02:09 Medications Name Sig Start Date [...] Available No t Available Vitals Date Recorded Systolic And Diastolic Systolic And Diastolic Provider Name and Address Organization Details Last Updated DateTime 01/22/2025 148/80 mm[Hg] 132/80 mm[Hg] COLBY Woo Attn: Accounting,[address] [facility], [place], [address], [place] [facility] 01/22/2025 15:49:17 Date Recorded Body height Body mass index (BMI) Body weight Oxygen saturation Heart rate Systolic And Diastolic Provider Name and Address Organization Details Last Updated DateTime 03/11/202 5 162.56 cm 34.8 kg/m2 79794.4 5 g 98 % 83 /min 158/80 mm[Hg] Johnny Ramos MA [facility] 5 15:36:08 Date Recorded Systolic And Diastolic Systolic And Diastolic Provider Name and Address Organization Details Last Updated DateTime 01/26/2024 144/80 mm[Hg] 144/80 mm[Hg] COLBY Woo Attn: Accounting,[address] [place], [address], [facility] 01/26/2024 15:56:33 Date Recorded Body weight Heart rate Oxygen saturation Body mass index (BMI) Body height Systolic And Diastolic Provider Name and Address Organization Details Last Updated DateTime 4 27907.1 g 83 /min 98 % 34.7 kg/m2 162.56 cm 149/82 mm[Hg] Joanne Fontana MA [facility] 4 15:15:01 Date Recorded Body height Body mass index (BMI) Body weight Respiratory rate Heart rate Oxygen saturation Systolic And Diastolic Provider Name and Address Organization Details Last Updated DateTime 5 162.56 cm 35.2 kg/m2 61007.4 4 g 18 /min 72 /min 100 % 116/82 mm[Hg] Merced Mjeia MA [facility] 5 16:06:09 Date Recorded Systolic And Diastolic Systolic And Diastolic Provider Name and Address Organization Details Last Updated DateTime 07/31/2024 140/80 mm[Hg] 140/80 mm[Hg] COLBY Woo Attn: Accounting,[address] [place], [address], [facility] 07/31/2024 17:18:13 Date Recorded Body height Oxygen saturation Heart rate Body mass index (BMI) Body weight Systolic And Diastolic Provider Name and Address Organization Details Last Updated DateTime 4 162.56 cm 97 % 70 /min 35 kg/m2 80198.4 5 g 158/82 mm[Hg] Shelbie Blackwood MA [facility] 4 16:56:12 Social History Question Answer Notes LastModified by Organizat ion Details LastModified Time Tobacco Smoking Status Never Smoker Joanne Fontana MA [facility], [place] [facility] 01/26/2024 16:25:43 Do You Have An Advance [...] not available 01/22/2025 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 [id number] Information not available 01/22/2025 Family History Relationship [...] Atrial Fibrillation N High Blood Pressure Y Kidney or Bladder Problems Y Thyroid Problems N GI Problems Y Depression N COPD N Blood Clots N Skin Problems N Anemia N Heart Attack ([place]) N Diabetes N Anxiety Disorder N Muscle, Joint, or Bone Problems Y Seizures/Epilepsy N Acid Reflux (GERD) Y Cancer Y Stroke N Asthma N Allergies Y High Cholesterol Y Hepatitis N Liver Disease [...] ICD10 Code Diagnosis IMO Codes Diagnosis Note [id number] Fernando Bejarano MD [facility] [address] [place] [address] 01/26/2024 14:59:21 01/26/2024 16:05:30 Pre-surgery evaluation 168715389 Z01.818 Pt is stable and cleared for foot surgery as needed. labs are stable for surgery and EKG is stable. Benign ess ential hypertension 7087550 I10 stable on medication Hyperlipidemia 33218205 E78.5 stable on statin therapy Chronic in terstitial cystitis N30.10 stable but remains symptomati c on Elmiron therapy Osteoarthritis 471701537 M19.90 pt takes tramadol 50mg PRN Chronic insomnia 5685978 04 F51.04 pt takes lorazepam 1mg qhs Long-term drug therapy 864197493 Z79.899 labs are all UTD. Mixed anxi ety and depressive disorder 754237203 F41.8 stable on buspar and duloxetine therapy Irritable bowel syndrome characterized by constipation 107344694 K58.1 chronic c/o. Linzess 145mcg daily is helpful. colonoscop y is UTD, we will request records to evaluate f/u time line. Acid reflux 712663088 K2 1.9 pt is on PPI and H2b therapy. will get records to evaluate for EGD f/u timeline. [id number] Fernando Bejarano MD [facility] [address] [place] [address] 07/31/2024 16:45:17 08/01/2024 11:06:35 Benign essential hypertension 1912672 I10 stable on medication Hyperlipidemia 98478029 E78.5 stable on statin therapy, all labs are within good range and repeat labs ordered for November Chronic in terstitial cystitis N30.10 stable but remains symptomati c on Elmiron therapy Chronic insomnia 9312299 04 F51.04 pt takes lorazepam 1mg qhs Osteoarthritis 075869769 M19.90 pt takes tramadol 50mg PRN Mixed anxi ety and depressive disorder 028648460 F41.8 stable on buspar and duloxetine therapy Irritable bowel syndrome characterized by constipation 882666321 K58.1 chronic c/o. Linzess 145mcg daily is helpful. colonoscop y is UTD from 03/30/2021 Acid reflux 123763603 K2 1.9 pt is on PPI and H2b therapy Long-term drug therapy 684842868 Z79.899 labs are all UTD. Labs are due again in November Adult heal th examination 713061355 Z00.01 wellness exam. Iron defic iency anemia 66746680 D50.9 Patient continues with iron deficiency anemia. We will refer her formally to the hematologi since her GI workup is previously up-to-date . We will also plan for repeat labs in November Prediabetes 292755333 R7 3.03 Following A1c, she is currently at 5.9% and she is currently stable at this time [id number] Fernando Bejarano MD [facility] - [facility] [address] [place] [address] 01/22/2025 14:59:39 01/22/2025 16:05:59 Body mass index 30+ - obesity 329415829 Z68.34 BMI is 34.8 Obesity 661677649 E66.9 discussed healthy diet, exercise, controllin g carbohydra damien and added sugars in the diet Benign ess ential hypertension 1889549 I10 132/80. overall stable, had a little elevation upon start of visit but improved by provider check. Hyperlipidemia 02189281 E78.5 stable on statin therapy, due for fasting lipid panel now Chronic in terstitial cystitis 818108566 N30.10 Reestablis h with a new urologist locally to discuss chronic interstiti al cystitis Prediabetes 643983606 R7 3.03 5.9% A1c on last labs but she is due for updated A1c Iron defic iency anemia 75877468 D50.9 Patient continues with iron deficiency anemia. We will refer her formally to the hematologi st since her GI workup is previously up-to-date . Vitamin B12, folate, iron studies and CBC are due Chronic insomnia 6188183 04 F51.04 pt takes lorazepam 1mg qhs Osteoarthritis 299758444 M19.90 pt takes tramadol 50mg PRN Mixed anxi ety and depressive disorder 550439871 F41.8 stable on buspar and duloxetine therapy, no acute concerns Irritable bowel syndrome characterized by constipation 466315011 K58.1 chronic c/o. Linzess 145mcg daily is helpful. colonoscop y is UTD from 03/30/2021 Acid reflux 492813357 K2 1.9 pt is on PPI and H2b therapy. Stable reflux Long-term drug therapy 985508537 Z79.899 Metabolic panel and thyroid testing due Pre-surgery testing 1104 80825 Z01.89 Preop EKG ordered Congestion of nasal sinus 93031384 R09.81 Add Flonase nasal spray for nasal sinus congestion Screening mammography 24 814196 Z12.31 Annual mammogram due in [id number] Fernando Bejarano MD [facility] - [facility] [address] [place] [address] 07/23/2025 15:54:49 07/29/2025 12:42:34 Obese class II 9168486340 49847 E66.812 E66.3 3938115469 discussed healthy diet, exercise, controllin g carbohydra damien and added sugars in the diet 35.2 Benign ess ential hypertension 1435019 I10 Blood pressure stable 116/82 Hyperlipidemia 23278175 E78.5 stable on statin therapy, due for fasting lipid panel now Chronic in terstitial cystitis 918640969 N30.10 Patient has been on Elmiron in the past but that is no longer covered on insurance. She does need to follow back up with urologist for other options Prediabetes 044699883 R7 3.03 6.1% A1c on last labs but she is due for updated A1c Mixed anxi ety and depressive disorder 576599867 F41.8 stable on buspar and duloxetine therapy, no acute concerns Acid reflux 533152103 K2 1.9 pt is on PPI and H2b therapy. Stable reflux Chronic insomnia 9264810 04 F51.04 pt takes lorazepam 1mg qhs Irritable bowel syndrome characterized by constipation 835228925 K58.1 chronic c/o. Linzess 145mcg daily is helpful. colonoscop y is UTD from 03/30/2021 Osteoarthritis 707815561 M19.90 pt takes tramadol 50mg PRN Iron defic iency anemia 00784424 D50.9 Patient continues with iron deficiency anemia. Patient did see hematology . See note. Vitamin B12, folate, iron studies and CBC are due Long-term drug therapy 231281051 Z79.899 Metabolic panel and thyroid testing due Adult heal th examination 307087943 Z00.00 6974362 wellness exam completed. Low back pain 952743192 M54.59 7950019476 Check plain film x-ray of the lumbosacra l spine for exacerbati on of low back pain Pain of hip region 51080 002 M25.552 268965 Check left hip x-ray for complaint of discomfort ongoing Health Concerns Section Related Observation LastModified by Organization Detai ls LastModified Time None Recorded Concern Status LastModified by Organization Details LastModified Time None Recorded Advance Directives Directive N: Payers Insurance Date Sequence Insurance Name Policy Number Policy Yuan Covered Member ID Yuan Member ID Guarantor Name 08/12/2025 1 [facility]) [id number] Mark Trujillo [id number] Hayley Trujillo Notes Date Note Type Note Provider Name and Address Organization Details Recorded Time 4 text/html HyperlipidemiaReported by Patientpt is stable on atorvastatin 20mg daily HypertensionReported by Patientpt takes propranolol ER 60mg daily and stable. Urinary FrequencyReported by Patienthx of I.C. pt is stable. no acute complaints. on Elmiron therapy. Generic HPI TemplateReported by Patientprediabetes. Anxiety/DepressionReported by Patientpt is stable on buspar 15mg bid and duloxetine 90mg daily. HeadacheReported by Patientpt takes propranolol ER 60mg daily for migraine prevention . stable. Reflux/GERDReported by Patientpt takes PPI therapy and pepcid therapy for reflux control. Pre op exam for Dr. Murry for foot surgery (left), date TBD COLBY Woo Attn: Accounting,[address] [place], [address], [facility] 02/07/2024 09:46:54 4 text/html HyperlipidemiaReported by Patientpt is stable on atorvastatin 20mg daily Urinary FrequencyReported by Patienthx of I.C. pt is stable. no acute complaints. on Elmiron therapy. HypertensionReported by Patientpt takes propranolol ER 60mg daily and stable. Generic HPI TemplateReported by Patientprediabetes. Anxiety/DepressionReported by Patientpt is stable on buspar 15mg bid and duloxetine 90mg daily. HeadacheReported by Patientpt takes propranolol ER 60mg daily for migraine prevention . stable. Reflux/GERDReported by Patientpt takes PPI therapy and pepcid therapy for reflux control. COLBY Woo Attn: Accounting,[address] [facility], [place], [address], [facility] 08/13/2024 09:37:12 5 text/html HyperlipidemiaReported by Patientpt is stable on atorvastatin 20mg daily Urinary FrequencyReported by Patienthx of I.C. pt is stable. no acute complaints. on Elmiron therapy. HypertensionReported by Patientpt takes propranolol ER 60mg daily and stable. Generic HPI TemplateReported by Patientprediabetes. Managed with diet Anxiety/DepressionReported by Patientpt is stable on buspar 15mg bid and duloxetine 90mg daily. HeadacheReported by Patientpt takes propranolol ER 60mg daily for migraine prevention . stable. Reflux/GERDReported by Patientpt takes PPI therapy and pepcid therapy for reflux control. IBS constipation history on Linzess fair control. COLBY Woo Attn: Accounting,[address] [facility], [place], [address], [facility] 02/11/2025 10:01:23 5 text/html HyperlipidemiaReported by Patientpt is stable [...] No injuries COLBY Woo Attn: Accounting,[address] [place], [address], [place] [facility] 08/10/2025 23:14:27 OBGyn Episode No OBEpisode recorded.
== END ==
LOC: ANHLAB 15:30
PROVIDERS: PCP Physician Assistant; Visit Provider Plastic Surgery
DX: C44.519 Basal cell carcinoma of skin of other part of trunk (principal)
CPT/HCPCS: 88305